=== PATIENT | male | born 1955 | race Caucasian/White ===

== ENCOUNTER 2020-12-28 16:05 | Emergency (ER) | payer MEDICARE, MEDICAID, SELFPAY ==
--- NOTE | ~2020-12-28 | CT_ITS ---
EXAMINATION: CT CHEST WITHOUT CONTRAST CLINICAL INFORMATION: Hypoxia. Question pneumonia. COMPARISON: None TECHNIQUE: Multidetector volumetric CT imaging of the chest was done. Axial MIP volume rendering provided. Sagittal and coronal reformatted images were obtained. This CT examination was performed using dose optimization techniques as appropriate, variously including the following: Automated exposure control. Adjustment of mA and/or kV according to patient size (this includes techniques or standardized protocols for targeted exams where dose is matched to indication/reason for exam; i.e. extremities or head). Use of iterative reconstruction technique. DLP: 1232 mGy-cm FINDINGS: [employer]: Unremarkable. LUNGS: Moderate emphysematous changes. Postsurgical change including linear scarring and sutures along the right major fissure extending into the right hilum. Subpleural calcified granuloma within the right lung apex. Mild dependent atelectasis, most prominent within the right lower lobe. No significant, confluent airspace opacity. No large pulmonary nodule or mass, however, evaluation is limited secondary to respiratory motion. The central airways are patent. MEDIASTINUM: No cardiomegaly. No pericardial effusion. No thoracic aortic dilatation. Scattered atherosclerotic calcifications. Mildly prominent precarinal lymph node measuring 1.2 x 1.5 cm. No additional mediastinal or hilar lymphadenopathy. Coronary artery atherosclerotic calcifications. Unremarkable thyroid. PLEURA: There is no pleural effusion. No pleural mass or thickening. AXILLA: No lymphadenopathy. UPPER ABDOMEN: Unremarkable. OSSEOUS STRUCTURES: Kyphoplasty at T12 and L1. No lytic or blastic osseous lesion. CT/CT chest wo con IMPRESSION: 1. Moderate emphysematous changes. Sutures and scarring consistent with postsurgical change along the right major fissure. 2. Mild dependent atelectasis without significant, confluent airspace opacity to suggest acute pneumonia. 3. Mildly prominent precarinal lymph node measuring 1.2 x 1.5 cm. No additional lymphadenopathy.
--- NOTE | ~2020-12-28 | CT_ITS ---
EXAMINATION: CT HEAD WITHOUT CONTRAST CT CERVICAL SPINE WITHOUT CONTRAST CLINICAL INFORMATION: Trauma COMPARISON: None. TECHNIQUE: Multidetector CT imaging of the head and cervical spine was performed without the use of intravenous contrast. Multiplanar reformats are reviewed. This CT examination was performed using dose optimization techniques as appropriate, variously including the following: *Automated exposure control *Adjustment of mA and/or kV according to patient size (this includes techniques or standardized protocols for targeted exams where dose is matched to indication/reason for exam; i.e. extremities or head) *Use of iterative reconstruction technique DLP: 123c2 mGy-cm. FINDINGS: There is no evidence of acute intracranial hemorrhage or territorial infarction. No abnormal mass effect or midline shift is seen. Andersen to white matter differentiation is well preserved. No extra-axial fluid collections are identified. The ventricles are normal in size. Mild patchy subcortical and periventricular white matter low-attenuation statistically related to cavernous carotid calcifications. Chronic small vessel ischemic disease. The osseous structures and soft tissues are normal. The mastoid air cells and visualized portions of the paranasal sinuses are well-aerated. Atlantooccipital alignment is maintained. The vertebral bodies and posterior elements align normally. No acute fracture or subluxation. Vertebral body heights are maintained.Small endplate osteophytes present throughout the cervical spine, with accompanying uncovertebral arthrosis, most pronounced at C4-C5 resulting in at least moderate bilateral foraminal narrowing, worse on the right. Paraspinal soft tissues unremarkable. Imaged lung apices demonstrate severe emphysema and right apical pleural-parenchymal scarring. CT/CT head/brain wo con IMPRESSION: No acute intracranial pathology. No cervical spine fracture or malalignment.
--- NOTE | ~2020-12-28 | CT_ITS ---
EXAMINATION: CT HEAD WITHOUT CONTRAST CT CERVICAL SPINE WITHOUT CONTRAST CLINICAL INFORMATION: Trauma COMPARISON: None. TECHNIQUE: Multidetector CT imaging of the head and cervical spine was performed without the use of intravenous contrast. Multiplanar reformats are reviewed. This CT examination was performed using dose optimization techniques as appropriate, variously including the following: *Automated exposure control *Adjustment of mA and/or kV according to patient size (this includes techniques or standardized protocols for targeted exams where dose is matched to indication/reason for exam; i.e. extremities or head) *Use of iterative reconstruction technique DLP: 123c2 mGy-cm. FINDINGS: There is no evidence of acute intracranial hemorrhage or territorial infarction. No abnormal mass effect or midline shift is seen. Andersen to white matter differentiation is well preserved. No extra-axial fluid collections are identified. The ventricles are normal in size. Mild patchy subcortical and periventricular white matter low-attenuation statistically related to cavernous carotid calcifications. Chronic small vessel ischemic disease. The osseous structures and soft tissues are normal. The mastoid air cells and visualized portions of the paranasal sinuses are well-aerated. Atlantooccipital alignment is maintained. The vertebral bodies and posterior elements align normally. No acute fracture or subluxation. Vertebral body heights are maintained.Small endplate osteophytes present throughout the cervical spine, with accompanying uncovertebral arthrosis, most pronounced at C4-C5 resulting in at least moderate bilateral foraminal narrowing, worse on the right. Paraspinal soft tissues unremarkable. Imaged lung apices demonstrate severe emphysema and right apical pleural-parenchymal scarring. CT/CT cervical spine wo con IMPRESSION: No acute intracranial pathology. No cervical spine fracture or malalignment.
[2020-12-28 16:17] VITALS: BP 129/79; BP 148/88; PULSE 100; PULSE 96; RESP 16; TEMP 36.7; O2SAT 96; BMI 25.0
--- NOTE | 2020-12-28 16:41 | ED_ITS ---
HPI - Alcohol General Chief Complaint: ETOH/Substance Use Stated Complaint: sitting on the sidewalk, etoh Time Seen by Provider: 12/28/20 16:40 Source: EMS Mode of arrival: EMS Limitations: altered mental status History of Present Illness HPI narrative: Patient brought by EMS intoxicated found on the side of the road. No known history of fall but patient has superficial abrasion on the left dorsum of the hand. Patient is very intoxicated and speaking in garbled speech also patient was recently diagnosed with pneumonia and taking antibiotics. Was saturating 90% on arrival at room air Related Data Allergies Allergy/AdvReac Type Severity Reaction Status Date / Time No Known Allergies Allergy Verified 12/28/20 16:22 Review of Systems Review of Systems: Yes Unobtainable due to mental status PMFSH Past Medical History Medical History ETOH abuse HTN (hypertension) Social History Social History Alcohol intake: current Smoking Status: Current every day smoker Use of substances other than those prescribed or required for medical reasons: No Advance Directives: No Advance Directives Information Provided: No Physical Exam Vital Signs: Vital Signs: Last Vital Signs Temp 98.0 F 12/28/20 16:17 Pulse 102 H 12/28/20 21:02 Resp 13 12/28/20 21:02 BP 115/75 12/28/20 21:02 Pulse Ox 92 12/28/20 21:02 Body Mass Index 25.0 Appearance: Lethargic but arousable to pain and verbal stimuli, No acute distress. ETOH++ Eyes: Pupils equal, round and reactive to light. Head :atraumatic normocephalic ENT: Pharynx normal. EAC normal both sides tympanic membrane intact Neck: Normal inspection. Neck supple. CVS: Normal heart rate and rhythm. Pulses normal. Respiratory: No respiratory distress. Breath sounds normal. Abdomen: Soft and nontender. Bowel sounds are present, no mass palpable, no CVA tenderness Skin: Skin warm and dry. Normal skin color. Normal skin turgor. Extremities: No lower extremity edema. Neuro: Oriented X 3. No motor deficit. No sensory deficit. MDM - Alcohol MDM Narrative Medical decision making narrative: Patient alert oriented x3 and communicating well eating and drinking in the ER CT scan negative labs stable will discharge him home advised to follow-up with detox as outpatient Differential Diagnosis Differential diagnosis: Likely alcohol intoxication Lab Data Attestation: I reviewed the patient's lab results. Result diagrams: 12/28/20 16:54 12/28/20 16:54 Labs: Lab Results 12/28/20 12/28/20 12/28/20 Range/Units 16:54 16:54 16:54 WBC 8.7 (4.8-10.8) X10*3/uL RBC 4.52 L (4.60-5.80) X10*6/uL Hgb 15.0 (14.0-18.0) g/dl Hct 44.2 (42-52) % MCV 97.8 (80-98) fL MCH 33.2 H (27.0-33.0) pg MCHC 33.9 (31.0-36.0) g/dl RDW 13.8 (11.0-16.0) % Plt Count 278 (160-400) X10*3/uL MPV 9.3 L (9.4-12.4) fL Immature Gran % (Auto) 0.3 (0.0-0.4) % Neut % (Auto) 89.1 H (45-73) % Lymph % (Auto) 8.9 L (20-40) % [place] % (Auto) 1.5 L (2-11) % Eos % (Auto) 0.0 (0-4) % Baso % (Auto) 0.2 (0-2) % Lymph # (Auto) 0.8 L (1.2-4.9) X10*3/uL [place] # (Auto) 0.1 (0.1-1.2) X10*3/uL Eos # (Auto) 0.0 (0.0-0.4) X10*3/uL Baso # (Auto) 0.0 (0.0-0.2) X10*3/uL Abs Immat Gran (auto) 0.03 (0.00-0.03) X10*3/uL Absolute Neuts (auto) 7.7 (2.0-8.3) X10*3/uL Absolute Nucleated RBC 0.000 (0.0-0.012) X10*3/uL Nucleated RBC % (auto) 0.0 (0.0-0.2) /100WBC PT 11.6 (10.8-13.0) SEC INR 1.0 (0.9-1.1) APTT 26.2 (24.1-38.0) SEC Sodium 144 (135-145) mmol/L Potassium 4.2 (3.3-5.1) mmol/L Chloride 108 (96-108) mmol/L Carbon Dioxide 21 L (22-29) mmol/L Anion Gap 19 (12-20) BUN 9 (9-16) mg/dL Creatinine 0.82 (0.5-1.4) mg/dL Estim Creat Clear Calc 85.0 Estimated GFR > 60 Random Glucose 127 H (60-115) mg/dL Calcium 8.6 (8.4-10.2) mg/dL Magnesium 2.3 (1.6-2.6) mg/dL Total Bilirubin 0.5 (0.0-1.0) mg/dL Direct Bilirubin 0.2 (0.0-0.5) mg/dL AST 28 (5-37) U/L ALT 19 (0-40) U/L Alkaline Phosphatase 56 (39-117) U/L Total Protein 7.1 (6.5-8.0) g/dL Albumin 4.2 (3.5-5.0) g/dL Ethyl Alcohol mg/dL COVID-19 ([facility]) (Negative) COVID-19 Clin Com 12/28/20 12/28/20 Range/Units 16:54 16:54 WBC (4.8-10.8) X10*3/uL RBC (4.60-5.80) X10*6/uL Hgb (14.0-18.0) g/dl Hct (42-52) % MCV (80-98) fL MCH (27.0-33.0) pg MCHC (31.0-36.0) g/dl RDW (11.0-16.0) % Plt Count (160-400) X10*3/uL MPV (9.4-12.4) fL Immature Gran % (Auto) (0.0-0.4) % Neut % (Auto) (45-73) % Lymph % (Auto) (20-40) % [place] % (Auto) (2-11) % Eos % (Auto) (0-4) % Baso % (Auto) (0-2) % Lymph # (Auto) (1.2-4.9) X10*3/uL [place] # (Auto) (0.1-1.2) X10*3/uL Eos # (Auto) (0.0-0.4) X10*3/uL Baso # (Auto) (0.0-0.2) X10*3/uL Abs Immat Gran (auto) (0.00-0.03) X10*3/uL Absolute Neuts (auto) (2.0-8.3) X10*3/uL Absolute Nucleated RBC (0.0-0.012) X10*3/uL Nucleated RBC % (auto) (0.0-0.2) /100WBC PT (10.8-13.0) SEC INR (0.9-1.1) APTT (24.1-38.0) SEC Sodium (135-145) mmol/L Potassium (3.3-5.1) mmol/L Chloride (96-108) mmol/L Carbon Dioxide (22-29) mmol/L Anion Gap (12-20) BUN (9-16) mg/dL Creatinine (0.5-1.4) mg/dL Estim Creat Clear Calc Estimated GFR Random Glucose (60-115) mg/dL Calcium (8.4-10.2) mg/dL Magnesium (1.6-2.6) mg/dL Total Bilirubin (0.0-1.0) mg/dL Direct Bilirubin (0.0-0.5) mg/dL AST (5-37) U/L ALT (0-40) U/L Alkaline Phosphatase (39-117) U/L Total Protein (6.5-8.0) g/dL Albumin (3.5-5.0) g/dL Ethyl Alcohol 349 H* mg/dL COVID-19 ([facility]) Negative (Negative) COVID-19 Clin Com See Note
--- NOTE | 2020-12-28 16:45 | ECG_ITS ---
Test Reason : ETOH/SUBSTANCE USE Blood Pressure : / mmHG Vent. Rate : 093 BPM Atrial Rate : 093 BPM P-R Int : 140 ms QRS Dur : 090 ms QT Int : 368 ms P-R-T Axes : 064 008 067 degrees QTc Int : 457 ms Normal sinus rhythm Normal ECG No previous ECGs available Referred By: Jose Taylor Electronically Signed By:Michi Aguila
[2020-12-28] MEDS: 0.9 % Sodium Chloride 1,000 ML 999 ML IVCONT ×2 (16:58→18:03)
[2020-12-28 16:59] LABS: MANUAL DIFF FLAG NO
[2020-12-28 17:00] LABS: Basophils Percent Auto 0.2 % (0-2); Hematocrit 44.2 % (42-52); Imm Gran Abs Auto 0.03 X10*3/uL (0.00-0.03); Imm Gran Pct Auto 0.3 % (0.0-0.4); Lymphocytes Absolute Auto 0.8 X10*3/uL (1.2-4.9); Lymphocytes Percent Auto 8.9 % (20-40); Mean Corpuscular HGB Conc 33.9 g/dl (31.0-36.0); Mean Corpuscular Hemoglobin 33.2 pg (27.0-33.0); Mean Corpuscular Volume 97.8 fL (80-98); Mean Platelet Volume 9.3 fL (9.4-12.4); Monocytes Absolute Auto 0.1 X10*3/uL (0.1-1.2); Monocytes Percent Auto 1.5 % (2-11); Neutrophils Absolute Auto 7.7 X10*3/uL (2.0-8.3); Neutrophils Percent Auto 89.1 % (45-73); Platelet Count 278 X10*3/uL (160-400); Red Blood Count 4.52 X10*6/uL (4.60-5.80); Red Cell Distribution Width 13.8 % (11.0-16.0); White Blood Count 8.7 X10*3/uL (4.8-10.8)
[2020-12-28 17:08] LABS: Prothrombin Time 11.6 SEC (10.8-13.0)
[2020-12-28 17:11] LABS: Partial Thromboplastin Time 26.2 SEC (24.1-38.0)
[2020-12-28 17:14] LABS: COVID-19 Test Negative (Negative); IDNOW Serial# 9DD0AD1C
[2020-12-28 17:26] LABS: Ethanol 349 mg/dL
[2020-12-28 17:30] LABS: Alanine Aminotransferase 19 U/L (0-40); Albumin Level 4.2 g/dL (3.5-5.0); Alkaline Phosphatase 56 U/L (39-117); Anion Gap 19 (12-20); Aspartate Amino Transferase 28 U/L (5-37); Bilirubin Direct 0.2 mg/dL (0.0-0.5); Bilirubin Total 0.5 mg/dL (0.0-1.0); Blood Urea Nitrogen 9 mg/dL (9-16); Calcium 8.6 mg/dL (8.4-10.2); Carbon Dioxide 21 mmol/L (22-29); Chloride 108 mmol/L (96-108); Estimated Glomerular Filt Rate > 60; Glucose Random 127 mg/dL (60-115); Potassium 4.2 mmol/L (3.3-5.1); Sodium 144 mmol/L (135-145); Total Protein 7.1 g/dL (6.5-8.0)
[2020-12-28 18:14] LABS: Magnesium 2.3 mg/dL (1.6-2.6)
[2020-12-28 21:02] VITALS: BP 115/75; PULSE 102; RESP 13; O2SAT 92
--- NOTE | 2020-12-28 21:21 | PC.NURSE ---
pt awake and alert, ambulatory with steady gait. pt trying to call for a cab to go home.
== END 2020-12-28 21:23 | disposition home or self-care (01) ==
PROVIDERS: Emergency Provider Internal Medicine
DX: F10.120 Alcohol abuse with intoxication, uncomplicated (principal); Y90.8 Blood alcohol level of 240 mg/100 ml or more; S60.512A Abrasion of left hand, initial encounter; X58.XXXA Exposure to other specified factors, initial encounter; I10 Essential (primary) hypertension; F17.200 Nicotine dependence, unspecified, uncomplicated; Y93.9 Activity, unspecified; Y92.480 Sidewalk as the place of occurrence of the external cause; Y99.9 Unspecified external cause status; Z20.822 Contact with and (suspected) exposure to COVID-19
CPT/HCPCS: 36415; 70450; 71250; 72125; 80048; 80076; 80320; 83735; 85025; 85610; 85730; 87635; 93005; 96360; 96361; 99284; 99285

== ENCOUNTER 2021-11-27 20:59 | Inpatient (IN) | payer MEDICARE, SELFPAY ==
[2021-11-27 21:23] VITALS: BMI 19.8
[2021-11-27 21:25] VITALS: BP 151/85; PULSE 57; RESP 18; TEMP 36.1; O2SAT 96
[2021-11-27] MEDS: hydrOXYzine HCL 25 MG TABLET PO (22:35)
--- NOTE | 2021-11-28 01:44 | PC.ADMIT ---
Pt. [place] [facility] [place]21 at 2113 with a diagnosis of MDD recurrent. Pt. was brought to the ED three days ago by ambulance after an attempted overdose on approximately 20-25 gabapentin and 2 pints of black velvet. According to ED documentation pt. reported SI during a call to a hotline, but pt. reported he may have called a friend. Someone contacted the police who came to pt's home. Pt. reports triggers as isolation and loneliness. Pt. reported one previous suicide attempt at age 27 when he walked in front of a moving vehicle and claims I was pronounced at the scene. Safety tool completed. Pt. denies SI currently. He contracts for safety on the unit. Pt. denies HI, AH and VH. Pt. receives psychiatric services through [facility]. Pt. reports history of ETOH abuse. He drinks two pints of whiskey daily. Pt. was recently discharged from [facility] in [place]. He scored zero on CIWA. Isatu Peacock NP was made aware and discontinued CIWA. Pt. is a PPD smoker x50 years. Nicotine patch ordered for AM. Pt. refused a flu vaccine reporting I never get one. Pt. has received COVID-19 vaccines and booster and is up to date with pneumonia vaccine. Pt. denies falls in the last six months. He ambulates independently. Pt. has upper and lower dentures in his mouth. Pt. reports eating and drinking adequately. Last BM was on 11/27/2021. Pt. wears bifocals. He reports chronic back and leg pain ranging from 3 to 8 out of 10. Surgical history includes kyphoplasty of lumbar spine fracture on 10/21/2017 and TURP 01/25/2012. Medical history includes COPD, osteoporosis and atherosclerosis of aorta. Pt. was alert and oriented x4. He was calm and cooperative. Admission assessments, safety tool and treatment plan completed. Pt. did not come with a list of medications and was unable to recall medications. He reports he is not always compliant with medications. Pt. uses [facility]. It was closed at time of admission. Med reconciliation to be completed during the day. Provider aware. Belongings checked in. Pt. was medicated with hydroxyzine 25mg at 2235. Pt. went to bed and appears to be resting quietly in bed.
[2021-11-28] MEDS: Acetaminophen 325 MG TABLET 650 MG PO ×2 (06:51→20:01)
[2021-11-28 08:27] LABS: Estimated Average Glucose 105 mg/dL; Hemoglobin A1c % 5.3 %
[2021-11-28 08:37] LABS: Cholesterol 192 mg/dL; HDL Cholesterol 52 mg/dL; LDL Cholesterol Calculated 112 mg/dl; Magnesium 2.3 mg/dL (1.6-2.6); Triglycerides 142 mg/dL
[2021-11-28] MEDS: Nicotine 21 MG PATCH.TD24 TRANSDERMA (08:43)
[2021-11-28 08:45] VITALS: BP 117/78; PULSE 65; RESP 18; TEMP 36.4; O2SAT 96
[2021-11-28 08:59] LABS: Free T4 (Free Thyroxine) 0.92 ng/dL (0.71-1.85); Thyroid Stimulating Hormone 3.54 uIU/mL (0.32-4.0)
[2021-11-28] MEDS: cloNIDine HCL 0.1 MG TABLET PO ×2 (12:43→20:01)
--- NOTE | 2021-11-28 15:19 | HO.PSYADMNOT ---
HPI Date of Service: 11/28/21 Chief Complaint: MDD recurrent episode Sources of Information: patient interviewed, chart reviewed and crisis/core team assessment reviewed HPI Subjective Notes: Gray Warning and Conditional Voluntary Narrative: The patient is a 66-year-old male, twice, father of adult children, currently on disability for the last 15 years, living alone referred from the emergency room of [facility] since the patient walking and he was complaining of suicidal ideation with a plan to overdose on alcohol and gabapentin. The patient was assessed by crisis and at that moment, he was unable to contract for safety so inpatient level of care was indicated. The patient carries a diagnosis of alcohol use disorder and major depressive disorder recurrent episode severe without psychosis. historically, the patient has several admissions for similar episodes that he got depressed with suicidal ideation in the context of substance abuse. On interview, the patient reported that he got into a binge of alcohol that worsen his depressive symptoms. He stated that he has been depressed fairly bad for the last 2 or 3 weeks elicited by depressed mood, and only a, lack of energy, feelings of hopelessness and worthlessness. He also start drinking more alcohol in a daily basis at a certain point he started feeling suicidal and he was unable to control himself so he asked for help. At the moment of the interview, the patient was able to contract for safety, he stated that he is not taking antipsychotics or antidepressants at this moment he was unable to provide for further details of treatment for depression or substance abuse but he stated that historically this imipramine worked very well for him for his depression. Nose psychotic symptoms at this moment. Regarding alcohol use disorder, he stated that he could keep himself sober when he is on naltrexone so he agreed to restart this medication 2. Past Psychiatric History: He has several encounters to crisis due to suicidal episodes in the context of substance abuse, he has several admissions into the hospital. The patient is a poor historian and able to provide when was the last admission but according to the chart he has several admissions for similar episodes Medical Evaluation Reviewed: Hospitalist [place] Pending [facility] Medical History Atherosclerosis of aorta Chronic obstructive pulmonary disease (COPD) Emphysema of lung ETOH abuse HTN (hypertension) Osteoporosis Tobacco dependence Surgical History History of basal cell carcinoma excision History of hydrocelectomy History of inguinal hernia repair History of kyphoplasty S/P TURP (status post transurethral resection of prostate) Family History: denies Social History: on disability for more than 15 years, he was twice and twice for similar reasons, his alcohol use disorder that interfered on his family life. At this moment he has very limited social support Substance History: history drinking alcohol at the age of 16 he has episodes of drinking a daily basis. He stated that when he was in his early 30s he had an episode of sobriety of 15 years. Historically, he was successful with naltrexone Trauma History: the night Diagnostics Vital Signs (24Hr): Vital Signs - 24 hr 11/27/21 21:25 11/28/21 08:45 Temperature 96.9 F 97.6 F Pulse Rate 57 65 Respiratory Rate 18 18 Blood Pressure 151/85 H 117/78 Pulse Oximetry 96 96 BMI result Body Mass Index 19.8 Labs Labs: Laboratory Results - last 48 hr 11/28/21 11/28/21 08:01 08:01 Estimat Average Glucose 105 Hemoglobin A1c % 5.3 Magnesium 2.3 Triglycerides 142 Cholesterol 192 LDL Cholesterol, Calc 112 HDL Cholesterol 52 TSH 3.54 Free T4 0.92 Meds/Allergies Meds Home Medications Acetaminophen (Acetaminophen 325 Mg Tablet) 650 mg PO Q6H PRN PRN Reason: Headache/Pain Mild Scale (1-3) Last Admin: 11/28/21 06:51 Dose: 650 mg Documented by: Al Hydroxide/Mg Hydroxide (Magnesium Hydrox/Alum Hydrox 30 Ml Oral.Susp) 30 ml PO Q6H PRN PRN Reason: Heartburn/Nausea Clonidine HCl (Clonidine Hcl 0.1 Mg Tablet) 0.1 mg PO TID PRN; Protocol PRN Reason: hyperarousal Last Admin: 11/28/21 12:43 Dose: 0.1 mg Documented by: Desipramine HCl (Desipramine Hcl 25 Mg Tablet) 12.5 mg PO BEDTIME SONY Hydroxyzine HCl (Hydroxyzine Hcl 25 Mg Tablet) 25 mg PO Q6H PRN PRN Reason: Anxiety Last Admin: 11/27/21 22:35 Dose: 25 mg Documented by: Magnesium Hydroxide (Milk Of Magnesia 30 Ml Oral.Susp) 30 ml PO DAILY PRN PRN Reason: Constipation Naltrexone HCl (Naltrexone Hcl 50 Mg Tablet) 50 mg PO DAILY SONY Nicotine (Nicotine 21 Mg Patch.Td24) 21 mg TRANSDERMA DAILY [facility] Last Admin: 11/28/21 08:43 Dose: 21 mg Documented by: Trazodone HCl (Trazodone Hcl 50 Mg Tablet) 50 mg PO BEDTIME PRN PRN Reason: Insomnia Allergies Allergies Allergy/AdvReac Type Severity Reaction Status Date / Time No Known Allergies Allergy Verified 11/27/21 21:30 Mental Status Exam Mental Status Exam Patient Appearance: Well Grooomed Patient Orientation: Person, Place, Time and Situation Level of Consciousness: Awake Patient Behavior: Cooperative Mood Description: Depressed Affect Description: Constricted Patient Cognition Impaired: No Ability to Follow Directions: Good Speech Pattern: Clear Hallucinations: None Delusions: Not Present Thought Process: Linear Thought Content: positive for [place] and positive for Perseveration Judgement: Fair Assessment & Plan Assessment & Plan (1) Alcohol use disorder, mild, abuse: Status: Acute Code(s): F10.10 - Alcohol abuse, uncomplicated (2) Major depressive disorder: Status: Acute Code(s): F32.9 - Major depressive disorder, single episode, unspecified Plan the patient is a middle-aged male, twice with a long history of alcohol use disorder that has impaired his life and he had even forensic involvement due to his alcohol use. He also has major depressive disorder, he had depressive episodes when he was clean and sober for 15 years in his 30s. The patient is admitted at this time due to suicidal ideation in the context of a survey jackman of depression with increased abuse of alcohol. Plan 1. Start this imipramine 12.5 mg p.o. to target depressive episodes. 2. Start naltrexone 50 mg p.o. q.h.s. to target alcohol cravings. 3. Continue other medications. 4. Gather collateral information. Patient educated on: diagnosis, substance abuse and therapeutic strategies Informed Consent: understands Reason for continued inpatient stay Substantial Risk for: harm to self, inability to function, rapid decompensation and med/psych decompensation
--- NOTE | 2021-11-28 16:25 | HO.HSGERICON ---
History of Present Illness Data of Consult Service Date: 11/28/21 Primary Care Provider: Pravin Gómez MD [facility] Reason for consult: htn, copd 66M admitted to inpatient psychiatry for depression. Patient has history of COPD this controlled on Spiriva and as needed albuterol. He is not actively having any shortness of breath. Patient also has history of hypertension but is not currently on medication. His blood pressure is 117/78. Review of Systems Review of Systems: Yes all other systems are reviewed and are negative [facility] Medical History Atherosclerosis of aorta Chronic obstructive pulmonary disease (COPD) Emphysema of lung ETOH abuse HTN (hypertension) Osteoporosis Tobacco dependence Family History Father No family history of coronary artery disease Surgical History History of basal cell carcinoma excision History of hydrocelectomy History of inguinal hernia repair History of kyphoplasty S/P TURP (status post transurethral resection of prostate) Social History Household Members: None Housing: House Housing Other:: Three family home, lives on third floor Do you presently have visiting nurse or other home services: No Alcohol intake: current Patient Tobacco Use Status: Current everyday Tobacco user Tobacco use type: Cigarette Cigarette Packs Per Day: 1 Cigarettes Per Day: 20.0 Years Smoked: 50 Smoked in Last 30 Days: Yes e-Cigarette/Vaping Use: Never Used Patient Interested in Nicotine Replacement: Yes Patient Given Instructions on How to Stop Smoking: Yes Date Education Initiated: 11/27/21 Second Hand Smoke Exposure: No Use of substances other than those prescribed or required for medical reasons: No Currently Displaying Signs/Symptoms of Drug Intoxication Withdrawal: No Any prior treatment program specific to substance use: Yes (Recent d/c from [facility] in [place] about a week ago.) Have you been hit, kicked, punched, or otherwise hurt by someone within the past year? If so, by whom?: No Do you feel safe in your current relationship?: No Is there a partner from a previous relationship who is making you feel unsafe now?: No Are you made to feel afraid or neglected: No Spiritual Healthcare Practices: n/a Congregation Healthcare Practices: Pt. is Confucianism. Cultural Healthcare Practices: n/a Advance Directives: No Advance Directives Information Provided: No Advance Directives on File: No Suicidal Behavior: History of suicide attemps and Self-injurious behavior Current/Past Psychiatric Disorders: Alcohol abuse Access to Firearms: No Do you have thoughts of harming others: None Do you have a plan to hurt others: No Plan Recently lost weight without trying: Yes How much weight loss: 2-13 pounds Eating poorly because of decreased appetite: Yes Nutrition screen score: 4 Nutrition Risks: No Nutritional Risk Poor oral hygiene: No (Upper and lower dentures in mouth.) Meds Allergies Allergy/AdvReac Type Severity Reaction Status Date / Time No Known Allergies Allergy Verified 11/27/21 21:30 Active Medications: Current Medications Acetaminophen (Acetaminophen 325 Mg Tablet) 650 mg PO Q6H PRN PRN Reason: Headache/Pain Mild Scale (1-3) Last Admin: 11/28/21 06:51 Dose: 650 mg Documented by: Al Hydroxide/Mg Hydroxide (Magnesium Hydrox/Alum Hydrox 30 Ml Oral.Susp) 30 ml PO Q6H PRN PRN Reason: Heartburn/Nausea Clonidine HCl (Clonidine Hcl 0.1 Mg Tablet) 0.1 mg PO TID PRN; Protocol PRN Reason: hyperarousal Last Admin: 11/28/21 12:43 Dose: 0.1 mg Documented by: Desipramine HCl (Desipramine Hcl 25 Mg Tablet) 12.5 mg PO BEDTIME [facility] Hydroxyzine HCl (Hydroxyzine Hcl 25 Mg Tablet) 25 mg PO Q6H PRN PRN Reason: Anxiety Last Admin: 11/27/21 22:35 Dose: 25 mg Documented by: Magnesium Hydroxide (Milk Of Magnesia 30 Ml Oral.Susp) 30 ml PO DAILY PRN PRN Reason: Constipation Naltrexone HCl (Naltrexone Hcl 50 Mg Tablet) 50 mg PO DAILY [facility] Nicotine (Nicotine 21 Mg Patch.Td24) 21 mg TRANSDERMA DAILY [facility] Last Admin: 11/28/21 08:43 Dose: 21 mg Documented by: Trazodone HCl (Trazodone Hcl 50 Mg Tablet) 50 mg PO BEDTIME PRN PRN Reason: Insomnia Results Labs Labs: Laboratory Results - last 24 hr 11/28/21 11/28/21 08:01 08:01 Estimat Average Glucose 105 Hemoglobin A1c % 5.3 Magnesium 2.3 Triglycerides 142 Cholesterol 192 LDL Cholesterol, Calc 112 HDL Cholesterol 52 TSH 3.54 Free T4 0.92 Assessment and Plan (1) HTN (hypertension): Status: Acute Plan 66M in inpatient psychiatry for depression copd stable continue spiriva albuterol as needed HTN not on meds, monitor Physical Exam Vital Signs: Last Vital Signs Temp 97.6 F 11/28/21 08:45 Pulse 65 11/28/21 08:45 Resp 18 11/28/21 08:45 BP 117/78 11/28/21 08:45 Pulse Ox 96 11/28/21 08:45 BMI result Body Mass Index 19.8 General: AO X 3, no acute distress Resp: CTA bilateral, no accessory muscles used CVS: S1,S2,RRR GI: soft, non tender, non distended Neuro: motor grossly intact, alert Neuro Cranial nerves: Yes CN's II-XII intact bilaterally
[2021-11-28 19:59] VITALS: BP 150/89; PULSE 62; RESP 18; TEMP 36.1; O2SAT 97
[2021-11-28] MEDS: Mirtazapine 15 MG TABLET PO (21:17)
[2021-11-29] MEDS: cloNIDine HCL 0.1 MG TABLET PO ×3 (06:24→21:24)
[2021-11-29] MEDS: Acetaminophen 325 MG TABLET 650 MG PO ×2 (06:24→16:14)
[2021-11-29 06:26] VITALS: BP 119/83; PULSE 82
[2021-11-29] MEDS: Nicotine 21 MG PATCH.TD24 TRANSDERMA (08:24)
[2021-11-29] MEDS: Naltrexone HCl 50 MG TABLET PO (08:24)
--- NOTE | 2021-11-29 12:22 | HO.PSYCHPN ---
Subjective Subjective Date of Service: 11/29/21 Reason For Visit: MDD recurrent episode Subjective Notes: Conditional Voluntary Interim History: The nursing staff reported the patient slept well last night, he has been pleasant and cooperative. On interview the patient reports that he is doing much better he slept fairly well last night. He is able to contract for safety in the unit Mental Status Exam Mental Status Exam Patient Appearance: Well Grooomed Patient Orientation: Person Level of Consciousness: Awake Patient Behavior: Cooperative Mood Description: Constricted Affect Description: Depressed Patient Cognition Impaired: No Speech Pattern: Clear Hallucinations: None Delusions: Not Present Thought Process: Linear Thought Content: positive for Circumstantial Judgement: Fair Diagnostics Vital Signs (24Hr): Vital Signs - 24 hr 11/28/21 19:59 11/29/21 06:26 Temperature 97.0 F Pulse Rate 62 82 Respiratory Rate 18 Blood Pressure 150/89 H 119/83 Pulse Oximetry 97 BMI result Body Mass Index 19.8 Labs Labs: Laboratory Results - last 48 hr 11/28/21 11/28/21 08:01 08:01 Estimat Average Glucose 105 Hemoglobin A1c % 5.3 Magnesium 2.3 Triglycerides 142 Cholesterol 192 LDL Cholesterol, Calc 112 HDL Cholesterol 52 TSH 3.54 Free T4 0.92 Medications Medications Current Medications Acetaminophen (Acetaminophen 325 Mg Tablet) 650 mg PO Q6H PRN PRN Reason: Headache/Pain Mild Scale (1-3) Last Admin: 11/29/21 06:24 Dose: 650 mg Documented by: Al Hydroxide/Mg Hydroxide (Magnesium Hydrox/Alum Hydrox 30 Ml Oral.Susp) 30 ml PO Q6H PRN PRN Reason: Heartburn/Nausea Albuterol Sulfate (Albuterol Sulfate 90 Mcg 8 Gm Inhaler) 1 puff INHALE Q6H PRN PRN Reason: sob Clonidine HCl (Clonidine Hcl 0.1 Mg Tablet) 0.1 mg PO TID PRN; Protocol PRN Reason: hyperarousal Last Admin: 11/29/21 06:24 Dose: 0.1 mg Documented by: Hydroxyzine HCl (Hydroxyzine Hcl 25 Mg Tablet) 25 mg PO Q6H PRN PRN Reason: Anxiety Last Admin: 11/27/21 22:35 Dose: 25 mg Documented by: Magnesium Hydroxide (Milk Of Magnesia 30 Ml Oral.Susp) 30 ml PO DAILY PRN PRN Reason: Constipation Mirtazapine (Mirtazapine 15 Mg Tablet) 15 mg PO BEDTIME [facility] Last Admin: 11/28/21 21:17 Dose: 15 mg Documented by: Naltrexone HCl (Naltrexone Hcl 50 Mg Tablet) 50 mg PO DAILY [facility] Last Admin: 11/29/21 08:24 Dose: 50 mg Documented by: Nicotine (Nicotine 21 Mg Patch.Td24) 21 mg TRANSDERMA DAILY [facility] Last Admin: 11/29/21 08:24 Dose: 21 mg Documented by: Tiotropium [place] (Tiotropium [place] 18 Mcg Cap.W.Dev) 1 puff INHALE RDAILY [facility] Last Admin: 11/29/21 08:25 Dose: 1 puff Documented by: Trazodone HCl (Trazodone Hcl 50 Mg Tablet) 50 mg PO BEDTIME PRN PRN Reason: Insomnia Allergies Allergies Allergy/AdvReac Type Severity Reaction Status Date / Time No Known Allergies Allergy Verified 11/27/21 21:30 Assessment & Plan Assessment & Plan (1) HTN (hypertension): Status: Acute Code(s): I10 - Essential (primary) hypertension Plan 66M in inpatient psychiatry for depression copd stable continue spiriva albuterol as needed HTN not on meds, monitor I spent ___20___ minutes with the patient and/or on the patient floor today, greater than?50% of which was spent counseling/coordinating care. Reason for contiued inpatient stay Substantial Risk for: inability to function, rapid decompensation and med/psych decompensation
[2021-11-29 20:30] VITALS: BP 102/60; PULSE 52; RESP 18; TEMP 36.2; O2SAT 96
[2021-11-29] MEDS: Mirtazapine 15 MG TABLET PO (21:24)
[2021-11-29] MEDS: Hydrocortisone 1 % Cream 28.35 GM TUBE 1 APPL TOPICAL (21:24)
[2021-11-30] MEDS: hydrOXYzine HCL 25 MG TABLET PO ×2 (01:56→20:16)
[2021-11-30] MEDS: cloNIDine HCL 0.1 MG TABLET PO (06:55)
[2021-11-30] MEDS: Acetaminophen 325 MG TABLET 650 MG PO ×2 (06:55→16:31)
[2021-11-30 06:57] VITALS: BP 119/59; PULSE 50; RESP 16; TEMP 36.4; O2SAT 95
[2021-11-30 08:36] LABS: Folate 6.6 ng/mL (> or = 4.0); Vitamin B12 225 pg/mL (200-900)
[2021-11-30 08:45] VITALS: BP 90/51; PULSE 40; RESP 16; TEMP 36.6; O2SAT 98
[2021-11-30] MEDS: Nicotine 21 MG PATCH.TD24 TRANSDERMA (09:02)
[2021-11-30] MEDS: Hydrocortisone 1 % Cream 28.35 GM TUBE 1 APPL TOPICAL (11:05)
[2021-11-30] MEDS: Naltrexone HCl 50 MG TABLET PO (11:06)
--- NOTE | 2021-11-30 11:48 | P.PNPSI_ITS ---
Subjective Subjective Date of Service: 11/30/21 Reason For Visit: MDD recurrent episode Subjective Notes: Conditional Voluntary Interim History: Pt reports he has been depressed for the past 2-3 months- or at least symptoms of depression increasing. He does report several events in his life that he regrets and have affected his mood and outlook on life throughout the years. He reports no contact with his adult children from 2 marriages. He reports that closest friend's told him recently to not call them again. He reports feeling lonely and guilt related to his ongoing alcohol use and how it has affected his ability to have a stable life and stable relationships with others. Despite this, he reports today that he is not suicidal, that he wants to get help/treatment for both substance use and psych. he does see psychiatrist and therapist but does not know what medication he is on. 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 we discussed either to continue it or switch to venlafaxine. he is also interested on vivitrol- reports he has been taking naltrexon for year but admits that when he knows he is going to drink he stops the medication. Review of Systems Review of Systems Yes all other systems are reviewed and are negative Diagnostics Vital Signs (24Hr): Vital Signs - 24 hr 11/29/21 20:30 11/30/21 06:57 11/30/21 08:45 Temperature 97.2 F 97.6 F 97.8 F Pulse Rate 52 50 40 L Respiratory Rate 18 16 16 Blood Pressure 102/60 119/59 L 90/51 L Pulse Oximetry 96 95 98 BMI result Body Mass Index 19.8 Labs Labs: Laboratory Results - last 48 hr 11/28/21 08:01 Vitamin B12 225 Folate 6.6 Medications Medications Current Medications Acetaminophen (Acetaminophen 325 Mg Tablet) 650 mg PO Q6H PRN PRN Reason: Headache/Pain Mild Scale (1-3) Last Admin: 11/30/21 06:55 Dose: 650 mg Documented by: Al Hydroxide/Mg Hydroxide (Magnesium Hydrox/Alum Hydrox 30 Ml Oral.Susp) 30 ml PO Q6H PRN PRN Reason: Heartburn/Nausea Albuterol Sulfate (Albuterol Sulfate 90 Mcg 8 Gm Inhaler) 1 puff INHALE Q6H PRN PRN Reason: sob Atorvastatin Calcium (Atorvastatin Calcium 10 Mg Tablet) 10 mg PO BEDTIME [facility] Finasteride (Finasteride 5 Mg Tablet) 5 mg PO DAILY [facility] Gabapentin (Gabapentin 100 Mg Capsule) 100 mg PO TID [facility] Hydrocortisone (Hydrocortisone 1 % Cream 28.35 Gm Tube) 1 appl TOPICAL BID [facility]; Protocol Last Admin: 11/30/21 11:05 Dose: 1 appl Documented by: Hydroxyzine HCl (Hydroxyzine Hcl 25 Mg Tablet) 25 mg PO Q6H PRN PRN Reason: Anxiety Last Admin: 11/30/21 01:56 Dose: 25 mg Documented by: Magnesium Hydroxide (Milk Of Magnesia 30 Ml Oral.Susp) 30 ml PO DAILY PRN PRN Reason: Constipation Mirtazapine (Mirtazapine 15 Mg Tablet) 15 mg PO BEDTIME [facility] Last Admin: 11/29/21 21:24 Dose: 15 mg Documented by: Naltrexone HCl (Naltrexone Hcl 50 Mg Tablet) 50 mg PO DAILY [facility] Last Admin: 11/30/21 11:06 Dose: 50 mg Documented by: Nicotine (Nicotine 21 Mg Patch.Td24) 21 mg TRANSDERMA DAILY [facility] Last Admin: 11/30/21 09:02 Dose: 21 mg Documented by: Tiotropium [place] (Tiotropium [place] 18 Mcg Cap.W.Dev) 1 puff INHALE RDAILY [facility] Last Admin: 11/30/21 09:02 Dose: 1 puff Documented by: Trazodone HCl (Trazodone Hcl 50 Mg Tablet) 50 mg PO BEDTIME PRN PRN Reason: Insomnia Allergies Allergies Allergy/AdvReac Type Severity Reaction Status Date / Time No Known Allergies Allergy Verified 11/27/21 21:30 Assessment & Plan Assessment & Plan (1) MDD (major depressive disorder), recurrent severe, without psychosis: Status: Acute Code(s): F33.2 - Major depressive disorder, recurrent severe without psychotic features (2) HTN (hypertension): Status: Acute Code(s): I10 - Essential (primary) hypertension (3) Alcohol use disorder, severe, dependence: Status: Acute Code(s): F10.20 - Alcohol dependence, uncomplicated Plan Mr. Cuevas is a 66 year-old male with hx of mdd, alcohol dependence who was admitted due to suicide attempt via OD on gabapentin. PLAN: 1. admit to M3, cv 15 minutes checks 2. continue gabapentin 100mg po TID 3. continue naltrexon- pt interested in getting vivitrol. he has been on it for year- although admits to not taking it consistently. no side effects. 4. either continue lexapro or switch to effexor. I spent minutes with the patient and/or on the patient floor today, greater than?50% of which was spent counseling/coordinating care. Reason for contiued inpatient stay Substantial Risk for: harm to self
[2021-11-30 16:18] VITALS: BMI 19.8
[2021-11-30] MEDS: Finasteride 5 MG TABLET PO (16:32)
[2021-11-30] MEDS: Gabapentin 100 MG CAPSULE PO ×2 (16:32→20:16)
[2021-11-30 18:00] VITALS: BP 116/60; PULSE 63; RESP 16; TEMP 36.2; O2SAT 98
[2021-11-30] MEDS: Atorvastatin Calcium 10 MG TABLET PO (20:16)
[2021-11-30] MEDS: Mirtazapine 15 MG TABLET PO (20:16)
[2021-12-01] MEDS: hydrOXYzine HCL 25 MG TABLET PO (01:46)
[2021-12-01] MEDS: Acetaminophen 325 MG TABLET 650 MG PO ×2 (01:46→12:45)
[2021-12-01 07:59] VITALS: BP 118/63; PULSE 58; RESP 16; TEMP 36.4; O2SAT 96
--- NOTE | 2021-12-01 08:06 | P.PNPSI_ITS ---
Subjective Subjective Date of Service: 12/01/21 Reason For Visit: MDD recurrent episode Subjective Notes: Conditional Voluntary Interim History: Pt reports feeling more optimistic about his future. He reports feeling less depressed, he is motivated to get vivitrol. He denies SI/HI. He reports he slept well last night. No behavioral concerns. Medication Compliance: Yes Side effects from medications: No Review of Systems Review of Systems Yes all other systems are reviewed and are negative Mental Status Exam Mental Status Exam Patient Appearance: Well Grooomed Patient Orientation: Person Level of Consciousness: Awake Patient Behavior: Cooperative Mood Description: Constricted Affect Description: Depressed Patient Cognition Impaired: No Ability to Follow Directions: Good Speech Pattern: Clear Diagnostics Vital Signs (24Hr): Vital Signs - 24 hr 12/01/21 20:18 Temperature 97.9 F Pulse Rate 59 Blood Pressure 148/70 H Pulse Oximetry 95 BMI result Body Mass Index 19.8 Labs Labs: Laboratory Results - last 48 hr 11/28/21 08:01 Vitamin B12 225 Folate 6.6 Medications Medications Current Medications Acetaminophen (Acetaminophen 325 Mg Tablet) 650 mg PO Q6H PRN PRN Reason: Headache/Pain Mild Scale (1-3) Last Admin: 12/02/21 05:27 Dose: 650 mg Documented by: Al Hydroxide/Mg Hydroxide (Magnesium Hydrox/Alum Hydrox 30 Ml Oral.Susp) 30 ml PO Q6H PRN PRN Reason: Heartburn/Nausea Albuterol Sulfate (Albuterol Sulfate 90 Mcg 8 Gm Inhaler) 1 puff INHALE Q6H PRN PRN Reason: sob Atorvastatin Calcium (Atorvastatin Calcium 10 Mg Tablet) 10 mg PO BEDTIME [facility] Last Admin: 12/01/21 20:26 Dose: 10 mg Documented by: Finasteride (Finasteride 5 Mg Tablet) 5 mg PO DAILY [facility] Last Admin: 12/01/21 08:14 Dose: 5 mg Documented by: Gabapentin (Gabapentin 100 Mg Capsule) 100 mg PO TID [facility] Last Admin: 12/01/21 20:25 Dose: 100 mg Documented by: Hydrocortisone (Hydrocortisone 1 % Cream 28.35 Gm Tube) 1 appl TOPICAL BID [facility]; Protocol Last Admin: 12/01/21 20:26 Dose: 1 appl Documented by: Hydroxyzine HCl (Hydroxyzine Hcl 25 Mg Tablet) 25 mg PO Q6H PRN PRN Reason: Anxiety Last Admin: 12/01/21 01:46 Dose: 25 mg Documented by: Magnesium Hydroxide (Milk Of Magnesia 30 Ml Oral.Susp) 30 ml PO DAILY PRN PRN Reason: Constipation Mirtazapine (Mirtazapine 15 Mg Tablet) 15 mg PO BEDTIME [facility] Last Admin: 12/01/21 20:26 Dose: 15 mg Documented by: Naltrexone HCl (Naltrexone Hcl 50 Mg Tablet) 50 mg PO DAILY [facility] Last Admin: 12/01/21 08:14 Dose: 50 mg Documented by: Nicotine (Nicotine 21 Mg Patch.Td24) 21 mg TRANSDERMA DAILY [facility] Last Admin: 12/01/21 08:12 Dose: 21 mg Documented by: Tiotropium [place] (Tiotropium [place] 18 Mcg Cap.W.Dev) 1 puff INHALE RDAILY [facility] Last Admin: 12/01/21 08:12 Dose: 1 puff Documented by: Trazodone HCl (Trazodone Hcl 50 Mg Tablet) 50 mg PO BEDTIME PRN PRN Reason: Insomnia Vitamin D (Cholecalciferol (Vitamin D3) 10 Mcg Tablet) 10 mcg PO DAILY [facility] Last Admin: 12/01/21 08:14 Dose: 10 mcg Documented by: Allergies Allergies Allergy/AdvReac Type Severity Reaction Status Date / Time No Known Allergies Allergy Verified 11/27/21 21:30 Assessment & Plan Assessment & Plan (1) MDD (major depressive disorder), recurrent severe, without psychosis: Status: Acute Code(s): F33.2 - Major depressive disorder, recurrent severe without psychotic features (2) HTN (hypertension): Status: Acute Code(s): I10 - Essential (primary) hypertension (3) Alcohol use disorder, severe, dependence: Status: Acute Code(s): F10.20 - Alcohol dependence, uncomplicated Plan Mr. Cuevas is a 66 year-old male with hx of mdd, alcohol dependence who was admitted due to suicide attempt via OD on gabapentin. PLAN: 1. admit to M3, cv 15 minutes checks 2. continue gabapentin 100mg po TID 3. continue naltrexon- pt interested in getting vivitrol. he has been on it for year- although admits to not taking it consistently. no side effects. 4. start effexor 37.5mg po daily. I spent minutes with the patient and/or on the patient floor today, greater than?50% of which was spent counseling/coordinating care. Reason for contiued inpatient stay Substantial Risk for: harm to self
[2021-12-01] MEDS: Hydrocortisone 1 % Cream 28.35 GM TUBE 1 APPL TOPICAL ×2 (08:11→20:26)
[2021-12-01] MEDS: Nicotine 21 MG PATCH.TD24 TRANSDERMA (08:12)
[2021-12-01] MEDS: Gabapentin 100 MG CAPSULE PO ×3 (08:14→20:25)
[2021-12-01] MEDS: Naltrexone HCl 50 MG TABLET PO (08:14)
[2021-12-01] MEDS: Finasteride 5 MG TABLET PO (08:14)
[2021-12-01] MEDS: Cholecalciferol (Vitamin D3) 10 MCG TABLET PO (08:14)
[2021-12-01 20:18] VITALS: BP 148/70; PULSE 59; TEMP 36.6; O2SAT 95
[2021-12-01] MEDS: Atorvastatin Calcium 10 MG TABLET PO (20:26)
[2021-12-01] MEDS: Mirtazapine 15 MG TABLET PO (20:26)
[2021-12-02] MEDS: Acetaminophen 325 MG TABLET 650 MG PO ×2 (05:27→15:29)
[2021-12-02 06:00] VITALS: BP 157/75; PULSE 64; RESP 16; TEMP 36.2; O2SAT 96
[2021-12-02] MEDS: Nicotine 21 MG PATCH.TD24 TRANSDERMA (08:58)
[2021-12-02] MEDS: Finasteride 5 MG TABLET PO (08:59)
[2021-12-02] MEDS: Hydrocortisone 1 % Cream 28.35 GM TUBE 1 APPL TOPICAL ×2 (08:59→21:09)
[2021-12-02] MEDS: Naltrexone HCl 50 MG TABLET PO (09:00)
[2021-12-02] MEDS: Cholecalciferol (Vitamin D3) 10 MCG TABLET PO (09:00)
[2021-12-02] MEDS: Venlafaxine HCl ER 37.5 MG CAP.ER.24H PO (09:00)
[2021-12-02] MEDS: Gabapentin 100 MG CAPSULE PO ×3 (09:00→21:08)
[2021-12-02] MEDS: Lidocaine 4 % Patch ADH..PATCH 1 PATCH TRANSDERMA ×2 (09:05→21:11)
--- NOTE | 2021-12-02 09:22 | HO.PSYCHPN ---
Subjective Subjective Date of Service: 12/02/21 Reason For Visit: MDD recurrent episode Subjective Notes: Conditional Voluntary Interim History: Pt reports sleeping and eating well. He reports feeling sleepy. He reports less depression, reports less symptoms of depression, optimistic about his future despite losses throughout the years due to alcohol use. He is motivated to get vivitrol- tolerating naltrexon for several months now. He denies SI/HI. Per nursing, pt visible in the unit, no behavioral concerns. Medication Compliance: Yes Side effects from medications: No Review of Systems Review of Systems Yes all other systems are reviewed and are negative Mental Status Exam Mental Status Exam Patient Appearance: Well Grooomed Patient Orientation: Person Level of Consciousness: Awake Patient Behavior: Cooperative Mood Description: Constricted Affect Description: Depressed Patient Cognition Impaired: No Ability to Follow Directions: Good Speech Pattern: Clear Diagnostics Vital Signs (24Hr): Vital Signs - 24 hr 12/03/21 18:00 12/04/21 08:36 Temperature 97.8 F 97.3 F Pulse Rate 75 88 Respiratory Rate 16 18 Blood Pressure 144/84 H 126/85 Pulse Oximetry 94 95 BMI result Body Mass Index 19.8 Medications Medications Current Medications Acetaminophen (Acetaminophen 325 Mg Tablet) 650 mg PO Q6H PRN PRN Reason: Headache/Pain Mild Scale (1-3) Last Admin: 12/04/21 08:38 Dose: 650 mg Documented by: Al Hydroxide/Mg Hydroxide (Magnesium Hydrox/Alum Hydrox 30 Ml Oral.Susp) 30 ml PO Q6H PRN PRN Reason: Heartburn/Nausea Albuterol Sulfate (Albuterol Sulfate 90 Mcg 8 Gm Inhaler) 1 puff INHALE Q6H PRN PRN Reason: sob Atorvastatin Calcium (Atorvastatin Calcium 10 Mg Tablet) 10 mg PO BEDTIME [facility] Last Admin: 12/03/21 20:38 Dose: 10 mg Documented by: Finasteride (Finasteride 5 Mg Tablet) 5 mg PO DAILY [facility] Last Admin: 12/04/21 08:38 Dose: 5 mg Documented by: Gabapentin (Gabapentin 100 Mg Capsule) 100 mg PO TID [facility] Last Admin: 12/04/21 08:39 Dose: 100 mg Documented by: Hydrocortisone (Hydrocortisone 1 % Cream 28.35 Gm Tube) 1 appl TOPICAL BID [facility]; Protocol Last Admin: 12/04/21 08:40 Dose: 1 appl Documented by: Hydroxyzine HCl (Hydroxyzine Hcl 25 Mg Tablet) 25 mg PO Q6H PRN PRN Reason: Anxiety Last Admin: 12/01/21 01:46 Dose: 25 mg Documented by: Lidocaine (Lidocaine 4 % Patch Adh..Patch) 1 patch TRANSDERMA BEDTIME [facility]; Protocol Last Admin: 12/03/21 20:38 Dose: 1 patch Documented by: Magnesium Hydroxide (Milk Of Magnesia 30 Ml Oral.Susp) 30 ml PO DAILY PRN PRN Reason: Constipation Mirtazapine (Mirtazapine 15 Mg Tablet) 15 mg PO BEDTIME [facility] Last Admin: 12/03/21 20:38 Dose: 15 mg Documented by: Naltrexone HCl (Naltrexone Hcl 50 Mg Tablet) 50 mg PO DAILY [facility] Last Admin: 12/04/21 08:39 Dose: 50 mg Documented by: Nicotine (Nicotine 21 Mg Patch.Td24) 21 mg TRANSDERMA DAILY [facility] Last Admin: 12/04/21 08:39 Dose: 21 mg Documented by: Tiotropium [place] (Tiotropium [place] 18 Mcg Cap.W.Dev) 1 puff INHALE RDAILY [facility] Last Admin: 12/04/21 08:39 Dose: 1 puff Documented by: Trazodone HCl (Trazodone Hcl 50 Mg Tablet) 50 mg PO BEDTIME PRN PRN Reason: Insomnia Last Admin: 12/03/21 20:41 Dose: 50 mg Documented by: Venlafaxine HCl (Venlafaxine Hcl Er 75 Mg Cap.Er.24h) 75 mg PO DAILY [facility] Last Admin: 12/04/21 08:39 Dose: 75 mg Documented by: Vitamin D (Cholecalciferol (Vitamin D3) 10 Mcg Tablet) 10 mcg PO DAILY [facility] Last Admin: 12/04/21 08:39 Dose: 10 mcg Documented by: Allergies Allergies Allergy/AdvReac Type Severity Reaction Status Date / Time No Known Allergies Allergy Verified 11/27/21 21:30 Assessment & Plan Assessment & Plan (1) MDD (major depressive disorder), recurrent severe, without psychosis: Status: Acute Code(s): F33.2 - Major depressive disorder, recurrent severe without psychotic features (2) HTN (hypertension): Status: Acute Code(s): I10 - Essential (primary) hypertension (3) Alcohol use disorder, severe, dependence: Status: Acute Code(s): F10.20 - Alcohol dependence, uncomplicated Plan Mr. Cuevas is a 66 year-old male with hx of mdd, alcohol dependence who was admitted due to suicide attempt via OD on gabapentin. PLAN: 1. admit to M3, cv 15 minutes checks 2. continue gabapentin 100mg po TID 3. continue naltrexon- pt interested in getting vivitrol. he has been on it for year- although admits to not taking it consistently. no side effects. 4. increase effexor 75mg po daily on 12/04. I spent minutes with the patient and/or on the patient floor today, greater than?50% of which was spent counseling/coordinating care. Reason for contiued inpatient stay Substantial Risk for: harm to self
--- NOTE | 2021-12-02 15:09 | MHC.CLN ---
F/U PATIENT REPORTS THAT HE IS EATING WELL. LIKES CHOCOLATE SUPPLEMENT. DIET=REGULAR WITH ENSURE BID. NO NEW NUTRITION INTERVENTIONS. RD TO FOLLOW WEEKLY.
[2021-12-02 20:46] VITALS: BP 160/77; PULSE 64; RESP 16; TEMP 36.6; O2SAT 94
[2021-12-02] MEDS: Mirtazapine 15 MG TABLET PO (21:08)
[2021-12-02] MEDS: Atorvastatin Calcium 10 MG TABLET PO (21:08)
[2021-12-03 08:00] VITALS: BP 131/87; PULSE 80; RESP 16; TEMP 36.8; O2SAT 95
[2021-12-03] MEDS: Nicotine 21 MG PATCH.TD24 TRANSDERMA (08:30)
[2021-12-03] MEDS: Finasteride 5 MG TABLET PO (08:31)
[2021-12-03] MEDS: Naltrexone HCl 50 MG TABLET PO (08:31)
[2021-12-03] MEDS: Cholecalciferol (Vitamin D3) 10 MCG TABLET PO (08:31)
[2021-12-03] MEDS: Gabapentin 100 MG CAPSULE PO ×3 (08:32→20:38)
[2021-12-03] MEDS: Venlafaxine HCl ER 37.5 MG CAP.ER.24H PO (08:32)
[2021-12-03] MEDS: Hydrocortisone 1 % Cream 28.35 GM TUBE 1 APPL TOPICAL (08:32)
[2021-12-03] MEDS: Acetaminophen 325 MG TABLET 650 MG PO (08:34)
--- NOTE | 2021-12-03 13:48 | HO.PSYCHPN ---
Subjective Subjective Date of Service: 12/03/21 Reason For Visit: MDD recurrent episode Interim History: Pt reports sleeping and eating well. He denies sedation during the day. He reports his mood is much improved in that he reports less symptoms of depression, optimistic about his future despite losses throughout the years due to alcohol use. He is motivated to get vivitrol- tolerating naltrexon for several months now. He denies SI/HI. Per nursing, pt visible in the unit, no behavioral concerns. Medication Compliance: Yes Review of Systems Review of Systems Yes all other systems are reviewed and are negative Mental Status Exam Mental Status Exam Patient Appearance: Well Grooomed Patient Orientation: Person Level of Consciousness: Awake Patient Behavior: Cooperative Mood Description: Constricted Affect Description: Depressed Patient Cognition Impaired: No Ability to Follow Directions: Good Speech Pattern: Clear Diagnostics Vital Signs (24Hr): Vital Signs - 24 hr 12/02/21 20:46 12/03/21 08:00 Temperature 97.8 F 98.3 F Pulse Rate 64 80 Respiratory Rate 16 16 Blood Pressure 160/77 H 131/87 Pulse Oximetry 94 95 BMI result Body Mass Index 19.8 Medications Medications Current Medications Acetaminophen (Acetaminophen 325 Mg Tablet) 650 mg PO Q6H PRN PRN Reason: Headache/Pain Mild Scale (1-3) Last Admin: 12/03/21 08:34 Dose: 650 mg Documented by: Al Hydroxide/Mg Hydroxide (Magnesium Hydrox/Alum Hydrox 30 Ml Oral.Susp) 30 ml PO Q6H PRN PRN Reason: Heartburn/Nausea Albuterol Sulfate (Albuterol Sulfate 90 Mcg 8 Gm Inhaler) 1 puff INHALE Q6H PRN PRN Reason: sob Atorvastatin Calcium (Atorvastatin Calcium 10 Mg Tablet) 10 mg PO BEDTIME [facility] Last Admin: 12/02/21 21:08 Dose: 10 mg Documented by: Finasteride (Finasteride 5 Mg Tablet) 5 mg PO DAILY SONY Last Admin: 12/03/21 08:31 Dose: 5 mg Documented by: Gabapentin (Gabapentin 100 Mg Capsule) 100 mg PO TID [facility] Last Admin: 12/03/21 08:32 Dose: 100 mg Documented by: Hydrocortisone (Hydrocortisone 1 % Cream 28.35 Gm Tube) 1 appl TOPICAL BID SONY; Protocol Last Admin: 12/03/21 08:32 Dose: 1 appl Documented by: Hydroxyzine HCl (Hydroxyzine Hcl 25 Mg Tablet) 25 mg PO Q6H PRN PRN Reason: Anxiety Last Admin: 12/01/21 01:46 Dose: 25 mg Documented by: Lidocaine (Lidocaine 4 % Patch Adh..Patch) 1 patch TRANSDERMA BEDTIME [facility]; Protocol Last Admin: 12/02/21 21:11 Dose: 1 patch Documented by: Magnesium Hydroxide (Milk Of Magnesia 30 Ml Oral.Susp) 30 ml PO DAILY PRN PRN Reason: Constipation Mirtazapine (Mirtazapine 15 Mg Tablet) 15 mg PO BEDTIME [facility] Last Admin: 12/02/21 21:08 Dose: 15 mg Documented by: Naltrexone HCl (Naltrexone Hcl 50 Mg Tablet) 50 mg PO DAILY [facility] Last Admin: 12/03/21 08:31 Dose: 50 mg Documented by: Nicotine (Nicotine 21 Mg Patch.Td24) 21 mg TRANSDERMA DAILY [facility] Last Admin: 12/03/21 08:30 Dose: 21 mg Documented by: Tiotropium Hale (Tiotropium Hale 18 Mcg Cap.W.Dev) 1 puff INHALE RDAILY [facility] Last Admin: 12/03/21 08:30 Dose: 1 puff Documented by: Trazodone HCl (Trazodone Hcl 50 Mg Tablet) 50 mg PO BEDTIME PRN PRN Reason: Insomnia Venlafaxine HCl (Venlafaxine Hcl Er 37.5 Mg Cap.Er.24h) 37.5 mg PO DAILY [facility] Last Admin: 12/03/21 08:32 Dose: 37.5 mg Documented by: Vitamin D (Cholecalciferol (Vitamin D3) 10 Mcg Tablet) 10 mcg PO DAILY [facility] Last Admin: 12/03/21 08:31 Dose: 10 mcg Documented by: Allergies Allergies Allergy/AdvReac Type Severity Reaction Status Date / Time No Known Allergies Allergy Verified 11/27/21 21:30 Assessment & Plan Assessment & Plan (1) MDD (major depressive disorder), recurrent severe, without psychosis: Status: Acute Code(s): F33.2 - Major depressive disorder, recurrent severe without psychotic features (2) HTN (hypertension): Status: Acute Code(s): I10 - Essential (primary) hypertension (3) Alcohol use disorder, severe, dependence: Status: Acute Code(s): F10.20 - Alcohol dependence, uncomplicated Plan Mr. Cuevas is a 66 year-old male with hx of mdd, alcohol dependence who was admitted due to suicide attempt via OD on gabapentin. PLAN: 1. admit to M3, cv 15 minutes checks 2. continue gabapentin 100mg po TID 3. continue naltrexon- pt interested in getting vivitrol. he has been on it for year- although admits to not taking it consistently. no side effects. 4. increase effexor 75mg po daily on 12/04. I spent minutes with the patient and/or on the patient floor today, greater than?50% of which was spent counseling/coordinating care. Reason for contiued inpatient stay Substantial Risk for: stable for discharge
[2021-12-03 18:00] VITALS: BP 144/84; PULSE 75; RESP 16; TEMP 36.6; O2SAT 94
[2021-12-03] MEDS: Lidocaine 4 % Patch ADH..PATCH 1 PATCH TRANSDERMA (20:38)
[2021-12-03] MEDS: Mirtazapine 15 MG TABLET PO (20:38)
[2021-12-03] MEDS: Atorvastatin Calcium 10 MG TABLET PO (20:38)
[2021-12-03] MEDS: traZODone HCL 50 MG TABLET PO (20:41)
[2021-12-04 08:36] VITALS: BP 126/85; PULSE 88; RESP 18; TEMP 36.3; O2SAT 95
[2021-12-04] MEDS: Finasteride 5 MG TABLET PO (08:38)
[2021-12-04] MEDS: Acetaminophen 325 MG TABLET 650 MG PO (08:38)
[2021-12-04] MEDS: Nicotine 21 MG PATCH.TD24 TRANSDERMA (08:39)
[2021-12-04] MEDS: Naltrexone HCl 50 MG TABLET PO (08:39)
[2021-12-04] MEDS: Gabapentin 100 MG CAPSULE PO (08:39)
[2021-12-04] MEDS: Venlafaxine HCl ER 75 MG CAP.ER.24H PO (08:39)
[2021-12-04] MEDS: Cholecalciferol (Vitamin D3) 10 MCG TABLET PO (08:39)
[2021-12-04] MEDS: Hydrocortisone 1 % Cream 28.35 GM TUBE 1 APPL TOPICAL (08:40)
--- NOTE | 2021-12-04 09:36 | PM.PSYDC ---
DS: Providers Provider Date of Service: 12/04/21 Date of admission: 11/27/21 20:59 Primary care physician: Pravin Gómez MD Consults: 11/27/21 21:32 Consult to Hospitalist Routine Consulting Provider: Hospitalist Reason For Exam: New admit from [facility] DS: Diagnosis Discharge Diagnosis (1) MDD (major depressive disorder), recurrent severe, without psychosis: Status: Acute (2) HTN (hypertension): Status: Acute (3) Alcohol use disorder, severe, dependence: Status: Acute DS: Medications Discharge Medications Home Medications: Previous Rx's Medication Instructions Recorded naltrexone microspheres 380 mg 380 mg IM Q4W #1 ea 12/02/21 intramuscular suspension,extended release (Vivitrol) albuterol sulfate 90 mcg/actuation 1 puff INHALATION Q6H PRN #0 g 12/04/21 aerosol inhaler (Ventolin HFA) atorvastatin 10 mg tablet 10 mg PO BEDTIME #0 tab 12/04/21 cholecalciferol (vitamin D3) 10 10 mcg PO DAILY #0 tab 12/04/21 mcg (400 unit) tablet (Vitamin D3) finasteride 5 mg tablet (Proscar) 5 mg PO DAILY #0 tab 12/04/21 gabapentin 100 mg capsule 100 mg PO TID #0 cap 12/04/21 hydrocortisone 1 % topical cream 1 appl TOPICAL BID #0 g 12/04/21 lidocaine 4 % topical patch 1 patch TRANSDERMAL BEDTIME #0 ea 12/04/21 (Lidocaine Pain Relief) mirtazapine 15 mg tablet 15 mg PO BEDTIME #30 tab 12/04/21 naltrexone 50 mg tablet 50 mg PO DAILY #30 tab 12/04/21 nicotine 21 mg/24 hr daily 21 mg TRANSDERMAL DAILY #0 ea 12/04/21 transdermal patch tiotropium bromide 18 mcg capsule 18 mcg INHALATION RDAILY #0 12/04/21 with inhalation device (Spiriva with HandiHaler) trazodone 50 mg tablet 50 mg PO BEDTIME PRN #30 tab 12/04/21 venlafaxine 75 mg capsule,extended 75 mg PO DAILY #30 cap 12/04/21 release 24 hr Mental Status Exam Mental Status Exam Narrative: Appearance: casually groomed, good hygiene, in NAD Behavior: cooperative, calm Speech: clear, normal rate/rhythm/volume, spontaneous Psychomotor: no agitation or retardation noted Mood: good Affect: bright, non labile, congruent TP: linear TC: no signs of psychosis, future oriented. VH/AH: none Delusions: none Insight/judgment: fair x 2. Memory/Cognition: alert, oriented x 3. Data Data Completed and Pending Completed studies during hospitalization [Text1]: 11/28/21 11/28/21 11/28/21 08:01 08:01 08:01 Estimat Average Glucose 105 Hemoglobin A1c % 5.3 Magnesium 2.3 Triglycerides 142 Cholesterol 192 LDL Cholesterol, Calc 112 HDL Cholesterol 52 Vitamin B12 225 Folate 6.6 TSH 3.54 Free T4 0.92 DS: Summary Hospital Course Hospital Course: Gray Warning and Conditional Voluntary Narrative: ? The patient is a 66-year-old male, twice, father of adult children, currently on disability for the last 15 years, living alone referred from the emergency room of [facility] since the patient walking and he was complaining of suicidal ideation with a plan to overdose on alcohol and gabapentin.? The patient was assessed by crisis and at that moment, he was unable to contract for safety so inpatient level of care was indicated.? The patient carries a diagnosis of alcohol use disorder and major depressive disorder recurrent episode severe without psychosis.? historically, the patient has several admissions for similar episodes that he got depressed with suicidal ideation in the context of substance abuse.? On interview, the patient reported that he got into a binge of alcohol that worsen his depressive symptoms.? He stated that he has been depressed fairly bad for the last 2 or 3 weeks elicited by depressed mood, and only a, lack of energy, feelings of hopelessness and worthlessness.? He also start drinking more alcohol in a daily basis at a certain point he started feeling suicidal and he was unable to control himself so he asked for help. At the moment of the interview, the patient was able to contract for safety, he stated that he is not taking antipsychotics or antidepressants at this moment he was unable to provide for further details of treatment for depression or substance abuse but he stated that historically this imipramine worked very well for him for his depression.? Nose psychotic symptoms at this moment.? Regarding alcohol use disorder, he stated that he could keep himself sober when he is on naltrexone so he agreed to restart this medication 2. Past Psychiatric History: ? He has several encounters to crisis due to suicidal episodes in the context of substance abuse, he has several admissions into the hospital.? The patient is a poor historian and able to provide when was the last admission but according to the chart he has several admissions for similar episodes Medical Evaluation Reviewed: Hospitalist [place] Pending HOSPITAL COURSE On the unit, Mr. Cuevas was admitted on a CV and placed on 15 minutes checks for safety. He was monitored for alcohol withdrawal, but he did not have significant symptoms. After discussing risks, benefits and alternative treatment options, pt reports partial or minimal effect on lexapro for depression and agreed to change to effexor. He was continued on Gabapentin 100mg po TID. He was started on remeron for sleep and mood. His affect gradually brighten. He presented future oriented and optimist about his future. He reported that despite all relationships lost due to his alcohol use, he was focused on rebuilding his life and continuing dual dx treatment. His sleep was good. His appetite increased. He did not appear with VH/AH. He was visible in the unit, social with peers. There were no incidences of disruptive behaviors nor use of restraints. He agreed to get vivitrol injection- reports being on naltrexon for a year without side effects, but admits to not taking it when he knows he will be using alcohol. Pt also educated on fact that even if he suspects he will drink, naltrexon will decrease amount. Status at Discharge Cognitive/behavioral status at discharge: Pt with bright affect. No labile, future oriented. No SI/HI. No signs of aggression towards self or others. Functional status at discharge: independent ambulation Overall status at discharge: patient is progressing back to baseline Time Spent with Patient Time attestation: Total time spent providing and/or coordinating discharge services: Time spent: Greater than 30 minutes Discharge Plan Discharge Patient Disposition: Home, Self-Care Discharge Diagnosis: MDD, recurrent, moderate Alcohol dependence Referrals: Norma Daigle [Other] - 12/10/21 8:30 am [facility] [Other] - 12/04/21 1:30 pm (IN OFFICE APPOINTMENT - intake for Vivitrol shot) Dr. 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 ) Alvaro Patel (Therapy) [Other] - 1 Week Discharge Medications: New Vivitrol 380 mg suspension,extended rel recon 380 mg IM Q4W Qty: 1 0RF albuterol sulfate [Ventolin HFA] 90 mcg/actuation Hfa Aerosol Inhaler 1 puff inhalation Q6H PRN (Reason: sob) Qty: 0 0RF Spiriva with HandiHaler 18 mcg Capsule, W/Inhalation Device 18 mcg inhalation RDAILY Qty: 0 0RF atorvastatin 10 mg Tablet 10 mg PO BEDTIME Qty: 0 0RF nicotine 21 mg/24 hr Patch 24 Hour 21 mg transdermal DAILY Qty: 0 0RF gabapentin 100 mg Capsule 100 mg PO TID Qty: 0 0RF venlafaxine 75 mg Capsule,Extended Release 24hr 75 mg PO DAILY Qty: 30 0RF lidocaine [Lidocaine Pain Relief] 4 % Adhesive Patch,Medicated 1 patch transdermal BEDTIME Qty: 0 0RF Protocol: Apply to: Apply to: back trazodone 50 mg Tablet 50 mg PO BEDTIME PRN (Reason: Insomnia) Qty: 30 0RF naltrexone 50 mg Tablet 50 mg PO DAILY Qty: 30 0RF hydrocortisone 1 % Cream 1 appl topical BID Qty: 0 0RF Protocol: Apply to: Apply to: affected areas on face and neck mirtazapine 15 mg Tablet 15 mg PO BEDTIME Qty: 30 0RF cholecalciferol (vitamin D3) [Vitamin D3] 10 mcg (400 unit) Tablet 10 mcg PO DAILY Qty: 0 0RF finasteride [Proscar] 5 mg Tablet 5 mg PO DAILY Qty: 0 0RF No Action naltrexone 50 mg tablet 50 mg PO DAILY 30 Days Qty: 30 5RF acamprosate 333 mg tablet,delayed release (DR/EC) 666 mg PO TID 30 Days Qty: 180 5RF Discharge Orders: Discharge Order (Routine); Ordered 12/04/21 Ordered By: Constance Brewster Diet: regular diet Activity on Discharge: As tolerated Stand Alone Forms: Patient Portal Discharge page Care Plan Goals: 1. Maintain mood 2. No SI/HI. Health Concerns: Follow up with PCP Plan of Treatment: 1. Take medications as prescribed. 2. Go to nearest ED or call 911 in event of emergency Assessment: Pt is brighter, non labile. No SI/HI. Pt sleeping and eating well. No signs of aggression towards self or others. Continue working on alcohol use treatment. Discharge Date/Time: 12/04/21 13:30
--- NOTE | 2021-12-04 13:30 | PC.NURSE ---
Patient is alert and orineted x 4. Patient is pleasant and cooperative with discharge. Patient was in agreement with discharge and discharge instructions. Patient denied SI/HI/AH/VH. Patient denied anxiety and/or depression. Patient reported feeling safe to go home. Patient denies physical complaints at this time.
== END 2021-12-04 13:30 | disposition home or self-care (01) | DRG 885 ==
PROVIDERS: Registered Nurse; Admitting Provider Psychiatry & Neurology Psychiatry; PCP Family Medicine; Visit Provider Social Worker
DX: F33.2 Major depressive disorder, recurrent severe without psychotic features (principal); R45.851 Suicidal ideations; J44.9 Chronic obstructive pulmonary disease, unspecified; F10.20 Alcohol dependence, uncomplicated; I10 Essential (primary) hypertension; F17.210 Nicotine dependence, cigarettes, uncomplicated; Z71.6 Tobacco abuse counseling; Z79.899 Other long term (current) drug therapy
CPT/HCPCS: 36415; 80061; 82607; 82746; 83036; 83735; 84439; 84443

== ENCOUNTER → 2021-12-04 13:36 | Outpatient (BNVA) | payer MEDICARE, SELFPAY | PROVIDERS: Visit Provider Internal Medicine | DX: F10.20 Alcohol dependence, uncomplicated (principal); F33.2 Major depressive disorder, recurrent severe without psychotic features; Z79.899 Other long term (current) drug therapy | CPT/HCPCS: 80305; 99202 ==

== ENCOUNTER 2022-05-25 01:55 | Inpatient (IN) | payer OTHER, SELFPAY ==
--- NOTE | 2022-05-25 05:18 | PC.ADMIT ---
Patient is a 40-year-old, , Slovenian speaking male who presented to at approximately 0215 05/25/22 via ambulance from [facility] emergency department. Patient signed a Conditional Voluntary status form; he is covid negative.? Patient has a history of emphysema, approximately 1/4 of his lung removed, history of prostate surgery, degenerative back disease, several removals of basal cell carcinoma, including right forearm and left eyelid. He has a history of chronic UTIs, osteoporosis, and COPD. He is a heavy smoker, states he smokes a pack and a half a day, which contributes to his respiratory issues. Patient fractured his back in November of 2017 while coughing and had it surgically repaired. He has had bouts of paralysis in his legs from a lack of blood flow. Per [facility] ED, patient presented with alcohol intoxication and making suicidal statements. He reported that he woke up and for the first time had an overwhelming feeling of wanting to kill himself. He shared with friends that he had a plan to take 20 pills. Friends became concerned and reported it. An ambulance was called and he was transported to [facility] ED.?Patient reports living alone in his own apartment. He states that it is a place for the elderly and he is always alone and never gets to see anyone. He reports that current insurance does not cover PCP or detox. So he is in the process of obtaining insurance that would cover these services. Patient was cooperative and pleasant during the admission process. A&O X4.
[2022-05-25] MEDS: Escitalopram Oxalate 10 MG TABLET PO (09:02)
[2022-05-25] MEDS: Thiamine HCL 100 MG TABLET PO (09:02)
[2022-05-25] MEDS: Folic Acid 1 MG TABLET PO (09:02)
[2022-05-25] MEDS: Atorvastatin Calcium 10 MG TABLET PO (09:02)
[2022-05-25] MEDS: risperiDONE 1 MG TABLET PO (09:02)
[2022-05-25] MEDS: Finasteride 5 MG TABLET PO (09:02)
[2022-05-25] MEDS: Gabapentin 100 MG CAPSULE 200 MG PO ×3 (09:02→21:12)
[2022-05-25] MEDS: Albuterol Sulfate 90 MCG 8 GM INHALER 2 PUFF INHALE (09:29)
[2022-05-25] MEDS: Nicotine 21 MG PATCH.TD24 TRANSDERMA (12:29)
[2022-05-25] MEDS: Acetaminophen 325 MG TABLET 650 MG PO (18:48)
[2022-05-25 18:49] VITALS: BMI 18.1
[2022-05-25 21:10] VITALS: BP 159/82; PULSE 68; TEMP 36.8; O2SAT 98
[2022-05-25] MEDS: Tamsulosin HCL 0.4 MG CAPSULE PO (21:12)
[2022-05-25] MEDS: diphenhydrAMINE HCL 25 MG TABLET PO (21:12)
--- NOTE | 2022-05-25 23:23 | HO.PSYADMNOT ---
HPI Date of Service: 05/25/22 Chief Complaint: Bipolar I d/O Current or Most Recent Episode Dep Sources of Information: patient interviewed, chart reviewed and crisis/core team assessment reviewed HPI Subjective Notes: Gray Warning and Conditional Voluntary Healthcare Proxy: No Guardianship: No Medical Problems Affecting Mental Status: No Narrative: Aris is a 67 y.o. male who carries a dx of MDD with psychotic features. He presented to [facility] crisis on 05/25/22 due to SI with plan to OD on his medication. Precipitating factors include that pt has been non-adherent with meds, chronic alcoholic, feels lonely. He consumes 6-10 shots alcohol daily and has not had alcohol in 6 days, presumably has already gone through withdrawal. I attempted to evaluate pt this evening, however he is already asleep for the night. Past Psychiatric History: -He has several encounters with crisis due to suicidal episodes in the context of substance abuse, he has several admissions into the hospital. -hx of 3 prior suicide attempts, last 2017 via overdose with lexapro and alcohol Medical Evaluation Reviewed: Yes [facility] Medical History (Updated 05/27/22 @ 06:07 by Isatu Peacock NP) Atherosclerosis of aorta Chronic obstructive pulmonary disease (COPD) Emphysema of lung ETOH abuse HTN (hypertension) Lumbar degenerative disc disease Osteoporosis Tobacco dependence Surgical History History of basal cell carcinoma excision History of hydrocelectomy History of inguinal hernia repair History of kyphoplasty S/P TURP (status post transurethral resection of prostate) Family History: -Daughter: has heroin abuse issues. Bio mom: alcoholic Social History: -on disability for more than 15 years -he was twice and twice for similar reasons, his alcohol use disorder that interfered on his family life. -very limited social support. Lives alone in an apartment -Per chart, pt was adopted. -Has 2 adult children. -[facility] -Hx of incarceration x 3 mo for alcohol related offenses and gun charge, has been assaultive towards his ex. Substance History: -ETOH: onset age 17. Consumes 6-10 shots alcohol daily and has not had alcohol in 6 days. Denies having gone through withdrawal and no hx withdrawal seizures. 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 His first child with his first at age 3 months. His children were removed and adopted due to his alcoholism (they are now adults). Diagnostics Vital Signs (24Hr): Vital Signs - 24 hr 05/25/22 21:10 05/26/22 06:00 Temperature 98.2 F 97.2 F Pulse Rate 68 88 Respiratory Rate 18 Blood Pressure 159/82 H 132/69 Pulse Oximetry 98 97 Oxygen Delivery Method Room Air Room Air BMI result Body Mass Index 18.1 Labs Labs: Laboratory Results - last 48 hr 05/26/22 05/26/22 05/26/22 08:00 08:00 08:00 Estimat Average Glucose 100 Hemoglobin A1c % 5.1 Magnesium 2.0 Triglycerides 109 Cholesterol 170 LDL Cholesterol, Calc 85 HDL Cholesterol 64 D Vitamin B12 246 Folate 13.1 TSH 2.10 Free T4 0.82 Meds/Allergies Allergies Allergies Allergy/AdvReac Type Severity Reaction Status Date / Time No Known Allergies Allergy Verified 12/04/21 13:48 Mental Status Exam Mental Status Exam Narrative: A&O. Unkempt appearance, normal body habitus, appears older than stated age. Good eye contact, attentive. No Tics or Tremors. No abnormal involuntary movements. Calm, cooperative, engaged. Non-pressured speech, spontaneous with regular rate and rhythm, normal volume and prosody. No prolonged speech latency or dysarthria. Mood is ?depressed,? affect is appropriate. Endorses passive SI. Denies SIB/HI upon inquiry. Endorses AH. Denies VH or delusional thought content. Thoughts are coherent, organized. No known cognitive or memory impairment. Insight/ Judgment fair and adequate. Assessment & Plan Assessment & Plan (1) MDD (major depressive disorder), recurrent severe, without psychosis: Status: Acute Code(s): F33.2 - Major depressive disorder, recurrent severe without psychotic features (2) Alcohol use disorder, severe, dependence: Status: Acute Code(s): F10.20 - Alcohol dependence, uncomplicated Plan Aris is a 67 y.o. male who carries a dx of MDD with psychotic features. He presented to [facility] crisis on 05/25/22 due to SI with plan to OD on his medication. Precipitating factors include that pt has been non-adherent with meds, chronic alcoholic, feels lonely. He consumes 6-10 shots alcohol daily and has not had alcohol in 6 days, presumably has already gone through withdrawal. Hx of multiple psych admissions for SI and hx of SA by overdose, jumping out of window. Plan: Re-start home medications, lexapro 10 mg daily, risperdal 1 mg for psychotic depression Q15 min safety checks, CV Monitor response to medications. Monitor for safety in the milieu. Discharge on stabilization. Patient seen. Chart reviewed. Discussed with team. Obtain collateral contact info?as needed Patient educated on: other Reason for continued inpatient stay Substantial Risk for: harm to self and med/psych decompensation
[2022-05-26 06:00] VITALS: BP 132/69; PULSE 88; RESP 18; TEMP 36.2; O2SAT 97
[2022-05-26] MEDS: Gabapentin 100 MG CAPSULE 200 MG PO ×3 (08:11→19:38)
[2022-05-26] MEDS: risperiDONE 1 MG TABLET PO (08:11)
[2022-05-26] MEDS: Escitalopram Oxalate 10 MG TABLET PO (08:11)
[2022-05-26] MEDS: Folic Acid 1 MG TABLET PO (08:11)
[2022-05-26] MEDS: Thiamine HCL 100 MG TABLET PO (08:11)
[2022-05-26] MEDS: Finasteride 5 MG TABLET PO (08:11)
[2022-05-26] MEDS: Nicotine 21 MG PATCH.TD24 TRANSDERMA (08:11)
[2022-05-26] MEDS: Atorvastatin Calcium 10 MG TABLET PO (08:12)
[2022-05-26] MEDS: Fluticasone/Vilanterol 200/25 BLST.W.DEV 1 PUFF INHALE (08:15)
[2022-05-26 09:32] LABS: Estimated Average Glucose 100 mg/dL; Hemoglobin A1c % 5.1 %
[2022-05-26 09:51] LABS: Cholesterol 170 mg/dL; HDL Cholesterol 64 mg/dL; LDL Cholesterol Calculated 85 mg/dl; Triglycerides 109 mg/dL
[2022-05-26 10:02] LABS: Free T4 (Free Thyroxine) 0.82 ng/dL (0.71-1.85)
[2022-05-26 10:55] LABS: Folate 13.1 ng/mL (> or = 4.0); Vitamin B12 246 pg/mL (200-900)
--- NOTE | 2022-05-26 12:01 | P.CONHOSP_ITS ---
History of Present Illness Data of Consult Service Date: 05/26/22 Requesting physician: Isatu Peacock Primary Care Provider: Unknown Physician HPI Reason for consult: medical H&P 67 year old male with history of COPD without exacerbation, hld, bph with history of TURP, DDD and hx compression fracture, alcohol dependence on naltrexone and acamprasate, htn, and depression admitted to psychiatry. Consumes 6-10 shots alcohol daily and has not had alcohol in 6 days. Denies having gone through withdrawal and no hx withdrawal seizures. He smokes 1ppd cigarettes and is doing well on nicotine patches. He has no medical complaints. Review of Systems Review of Systems: General: No fevers, malaise, unintentional weight loss Cardiovascular: No chest pain, palpitations, or leg edema Respiratory: No shortness of breath, wheezing, cough GI: No abdominal pain, nausea, vomiting, diarrhea, constipation, melena, hematochezia Neuro: No headaches, weakness, paresthesias Skin: No rashes or lesions REPLACED BY [facility] Medical History (Updated 05/26/22 @ 12:25 by LUKE Bear) Atherosclerosis of aorta Chronic obstructive pulmonary disease (COPD) Emphysema of lung ETOH abuse HTN (hypertension) Lumbar degenerative disc disease Osteoporosis Tobacco dependence Family History Father No family history of coronary artery disease Surgical History History of basal cell carcinoma excision History of hydrocelectomy History of inguinal hernia repair History of kyphoplasty S/P TURP (status post transurethral resection of prostate) Social History Household Members: None Housing: Apartment Housing Other:: Three family home, lives on third floor Do you presently have visiting nurse or other home services: Yes Alcohol intake: current Patient Tobacco Use Status: Current everyday Tobacco user Tobacco use type: Cigarette Cigarette Packs Per Day: 1 Cigarettes Per Day: 20.0 Years Smoked: 50 Smoked in Last 30 Days: Yes e-Cigarette/Vaping Use: Never Used Patient Interested in Nicotine Replacement: Yes Patient Given Instructions on How to Stop Smoking: Yes Date Education Initiated: 05/25/22 Second Hand Smoke Exposure: Yes Use of substances other than those prescribed or required for medical reasons: No Currently Displaying Signs/Symptoms of Drug Intoxication Withdrawal: No Have you been hit, kicked, punched, or otherwise hurt by someone within the past year? If so, by whom?: No Do you feel safe in your current relationship?: No Current Relationship Is there a partner from a previous relationship who is making you feel unsafe now?: No Are you made to feel afraid or neglected: No Spiritual Healthcare Practices: n/a Restorationist Healthcare Practices: mandaeism Cultural Healthcare Practices: n/a Advance Directives: No Advance Directives Information Provided: No (declined) Do you have thoughts of harming others: None Do you have a plan to hurt others: No Plan Recently lost weight without trying: No Eating poorly because of decreased appetite: No Nutrition Risks: No Nutritional Risk Poor oral hygiene: No service: Yes ([employer], less than a yr.) Sexual orientation: Straight/Heterosexual Meds Allergies Allergy/AdvReac Type Severity Reaction Status Date / Time No Known Allergies Allergy Verified 12/04/21 13:48 Active Medications: Current Medications Acetaminophen (Acetaminophen 325 Mg Tablet) 650 mg PO Q6H PRN PRN Reason: Headache/Pain Mild Scale (1-3) Last Admin: 05/25/22 18:48 Dose: 650 mg Al Hydroxide/Mg Hydroxide (Magnesium Hydrox/Alum Hydrox 30 Ml Oral.Susp) 30 ml PO Q6H PRN PRN Reason: Heartburn/Nausea Albuterol Sulfate (Albuterol Sulfate 90 Mcg 8 Gm Inhaler) 2 puff INHALE RQ4H PRN PRN Reason: Wheezing Last Admin: 05/25/22 09:29 Dose: 2 puff Atorvastatin Calcium (Atorvastatin Calcium 10 Mg Tablet) 10 mg PO DAILY [facility] Last Admin: 05/26/22 08:12 Dose: 10 mg Diphenhydramine HCl (Diphenhydramine Hcl 25 Mg Tablet) 25 mg PO BEDTIME PRN PRN Reason: Insomnia Last Admin: 05/25/22 21:12 Dose: 25 mg Escitalopram Oxalate (Escitalopram Oxalate 10 Mg Tablet) 10 mg PO DAILY [facility] Last Admin: 05/26/22 08:11 Dose: 10 mg Finasteride (Finasteride 5 Mg Tablet) 5 mg PO DAILY [facility] Last Admin: 05/26/22 08:11 Dose: 5 mg Fluticasone/Vilanterol (Fluticasone/Vilanterol 200/25 Blst.W.Dev) 1 puff INHALE RDAILY [facility] Last Admin: 05/26/22 08:15 Dose: 1 puff Folic Acid (Folic Acid 1 Mg Tablet) 1 mg PO DAILY [facility] Last Admin: 05/26/22 08:11 Dose: 1 mg Gabapentin (Gabapentin 100 Mg Capsule) 200 mg PO TID [facility] Last Admin: 05/26/22 08:11 Dose: 200 mg Hydroxyzine HCl (Hydroxyzine Hcl 25 Mg Tablet) 25 mg PO Q6H PRN PRN Reason: Anxiety Magnesium Hydroxide (Milk Of Magnesia 30 Ml Oral.Susp) 30 ml PO DAILY PRN PRN Reason: Constipation Naltrexone HCl (Naltrexone Hcl 50 Mg Tablet) 50 mg PO DAILY PRN PRN Reason: urges Nicotine (Nicotine 21 Mg Patch.Td24) 21 mg TRANSDERMA DAILY [facility] Last Admin: 05/26/22 08:11 Dose: 21 mg Polyethylene Glycol (Polyethylene Glycol 3350 17 Gm Powd.Pack) 17 gm PO DAILY PRN PRN Reason: constipation Risperidone (Risperidone 1 Mg Tablet) 1 mg PO DAILY [facility] Last Admin: 05/26/22 08:11 Dose: 1 mg Tamsulosin HCl (Tamsulosin Hcl 0.4 Mg Capsule) 0.4 mg PO BEDTIME [facility] Last Admin: 05/25/22 21:12 Dose: 0.4 mg Thiamine HCl (Thiamine Hcl 100 Mg Tablet) 100 mg PO DAILY [facility] Last Admin: 05/26/22 08:11 Dose: 100 mg Tiotropium [place] (Tiotropium [place] 18 Mcg Cap.W.Dev) 1 puff INHALE RDAILY [facility] Last Admin: 05/26/22 08:16 Dose: Not Given Physical Exam Vital Signs and Narrative: Vital Signs: Last Vital Signs Temp 97.2 F 05/26/22 06:00 Pulse 88 05/26/22 06:00 Resp 18 05/26/22 06:00 BP 132/69 05/26/22 06:00 Pulse Ox 97 05/26/22 06:00 O2 Del Method 05/26/22 06:00 BMI result Body Mass Index 18.1 Constitutional - Awake and Alert, No apparent distress Eyes - PERRLA, EOMI Cardiovascular - S1S2, RRR, No edema Respiratory - Normal lung expansion, Normal respiratory effort, No respiratory distress, CTA bilaterally Gastrointestinal - NT / ND; +BS; No rebound or guarding - No CVA tenderness Extremities - no calf tenderness bilaterally, no swelling Musculoskeletal - Normal inspection, normal ROM Skin - Warm/Dry Neurological - Alert & oriented x3, CN II-XII in tact. 5/5 strength BUE and BLE Psychological - Appropriate affect Results Labs Labs: Laboratory Results - last 24 hr 05/26/22 05/26/22 05/26/22 08:00 08:00 08:00 Estimat Average Glucose 100 Hemoglobin A1c % 5.1 Magnesium 2.0 Triglycerides 109 Cholesterol 170 LDL Cholesterol, Calc 85 HDL Cholesterol 64 D Vitamin B12 246 Folate 13.1 TSH 2.10 Free T4 0.82 Assessment and Plan (1) MDD (major depressive disorder), recurrent severe, without psychosis: Status: Acute (2) Alcohol use disorder, severe, dependence: Status: Acute Plan 67 year old male with history of COPD without exacerbation, hld, bph with history of TURP, DDD and hx compression fracture, alcohol dependence on naltrexone and acamprasate, htn, and depression admitted to psychiatry consulted on for medical H&P. 1-MDD -Plan per psychiatry 2-Alcohol dependence- stable without withdrawal -Continue naltrexone and acamprasate -LFTs normal -Continue thiamine and folic acid -Vitamin B12 also low. Recommend vitamin b12 1000mcg daily po 3-Tobacco dependence -Continue NRT 4-COPD- controlled without exacerbation -Continue spiriva and albuterol prn 5-DDDlumbar spine -Continue gabapentin -Lidocaine patches prn 6-HLD -Atorvastatin 7-BPH -Continue finasteride 8-Recurrent UTI -Continue methenamine Thank you for allowing me to participate in this consult. Signing off at this time. Please do not hesitate to call for further questions.
[2022-05-26] MEDS: hydrOXYzine HCL 25 MG TABLET PO (12:41)
--- NOTE | 2022-05-26 17:38 | HO.PSYCHPN ---
Subjective Subjective Date of Service: 05/26/22 Reason For Visit: Bipolar I d/O Current or Most Recent Episode Dep Interim History: I evaluated the pt this evening and upon interview, he reports he has been non-adherent with his psych meds x 01/2022. Says there were too many, despite having a VNA he said he was unable to manage his med regimen and that they were shipping me a new med just about weekly. Otherwise, says his medications were working, has been on them about 2-3 years, feels worse off meds. Complains of depression, boredom, and feels very much isolated. Using meals on wheels. Says he chronically relapses on alcohol, drinking 6-10 shots a day, longest length of sobriety was 6 months. Identifies AA and being around people as helpful. Wants to re-start naltrexone. Pt endorsed AH, onset in his late 20s, says nothing makes them go away permanently and I can deal with them. Says it sounds like someone talking in the next room, he can understand the conversation, they're talking about me, at times theyre talking about killing me. He has had periods when the voices went away in his late 30s, attributes this to being on desipramine, it worked for 10 years, unsure why it was discontinued. Sleep has been pretty good, energy is low. Says vistaril works for anxiety. Has some paranoia, comes with the voices, gets hypervigilant, feels people want to harm him. He denies SI. Feels safe. Heoesnt have PCP, needs to reestablish one at [facility]. Doesnt have OP psych providers. Medication Compliance: Yes Side effects from medications: No Attending Groups: Yes Review of Systems Acute medical concerns: No Medical Review of Systems: unchanged Mental Status Exam Mental Status Exam Narrative: A&O. Unkempt appearance, normal body habitus, appears older than stated age. Good eye contact, attentive. No Tics or Tremors. No abnormal involuntary movements. Calm, cooperative, engaged. Non-pressured speech, spontaneous with regular rate and rhythm, normal volume and prosody. No prolonged speech latency or dysarthria. Mood is ?depressed,? affect is appropriate. Endorses passive SI. Denies SIB/HI upon inquiry. Endorses AH. Denies VH or delusional thought content. Thoughts are coherent, organized. No known cognitive or memory impairment. Insight/ Judgment fair and adequate. Diagnostics Vital Signs (24Hr): Vital Signs - 24 hr 05/25/22 21:10 05/26/22 06:00 Temperature 98.2 F 97.2 F Pulse Rate 68 88 Respiratory Rate 18 Blood Pressure 159/82 H 132/69 Pulse Oximetry 98 97 Oxygen Delivery Method Room Air Room Air BMI result Body Mass Index 18.1 Labs Labs: Laboratory Results - last 48 hr 05/26/22 05/26/22 05/26/22 08:00 08:00 08:00 Estimat Average Glucose 100 Hemoglobin A1c % 5.1 Magnesium 2.0 Triglycerides 109 Cholesterol 170 LDL Cholesterol, Calc 85 HDL Cholesterol 64 D Vitamin B12 246 Folate 13.1 TSH 2.10 Free T4 0.82 Medications Medications Current Medications Acetaminophen (Acetaminophen 325 Mg Tablet) 650 mg PO Q6H PRN PRN Reason: Headache/Pain Mild Scale (1-3) Last Admin: 05/25/22 18:48 Dose: 650 mg Al Hydroxide/Mg Hydroxide (Magnesium Hydrox/Alum Hydrox 30 Ml Oral.Susp) 30 ml PO Q6H PRN PRN Reason: Heartburn/Nausea Albuterol Sulfate (Albuterol Sulfate 90 Mcg 8 Gm Inhaler) 2 puff INHALE RQ4H PRN PRN Reason: Wheezing Last Admin: 05/25/22 09:29 Dose: 2 puff Ascorbic Acid (Ascorbic Acid 500 Mg Tablet) 500 mg PO BID [facility] Atorvastatin Calcium (Atorvastatin Calcium 10 Mg Tablet) 10 mg PO DAILY [facility] Last Admin: 05/26/22 08:12 Dose: 10 mg Diphenhydramine HCl (Diphenhydramine Hcl 25 Mg Tablet) 25 mg PO BEDTIME PRN PRN Reason: Insomnia Last Admin: 05/25/22 21:12 Dose: 25 mg Escitalopram Oxalate (Escitalopram Oxalate 10 Mg Tablet) 10 mg PO DAILY [facility] Last Admin: 05/26/22 08:11 Dose: 10 mg Finasteride (Finasteride 5 Mg Tablet) 5 mg PO DAILY [facility] Last Admin: 05/26/22 08:11 Dose: 5 mg Fluticasone/Vilanterol (Fluticasone/Vilanterol 200/25 Blst.W.Dev) 1 puff INHALE RDAILY [facility] Last Admin: 05/26/22 08:15 Dose: 1 puff Folic Acid (Folic Acid 1 Mg Tablet) 1 mg PO DAILY [facility] Last Admin: 05/26/22 08:11 Dose: 1 mg Gabapentin (Gabapentin 100 Mg Capsule) 200 mg PO TID [facility] Last Admin: 05/26/22 14:50 Dose: 200 mg Hydroxyzine HCl (Hydroxyzine Hcl 25 Mg Tablet) 25 mg PO Q6H PRN PRN Reason: Anxiety Last Admin: 05/26/22 12:41 Dose: 25 mg Magnesium Hydroxide (Milk Of Magnesia 30 Ml Oral.Susp) 30 ml PO DAILY PRN PRN Reason: Constipation Naltrexone HCl (Naltrexone Hcl 50 Mg Tablet) 50 mg PO DAILY [facility] Nicotine (Nicotine 21 Mg Patch.Td24) 21 mg TRANSDERMA DAILY [facility] Last Admin: 05/26/22 08:11 Dose: 21 mg Polyethylene Glycol (Polyethylene Glycol 3350 17 Gm Powd.Pack) 17 gm PO DAILY PRN PRN Reason: constipation Risperidone (Risperidone 1 Mg Tablet) 1 mg PO DAILY [facility] Last Admin: 05/26/22 08:11 Dose: 1 mg Tamsulosin HCl (Tamsulosin Hcl 0.4 Mg Capsule) 0.4 mg PO BEDTIME [facility] Last Admin: 05/25/22 21:12 Dose: 0.4 mg Thiamine HCl (Thiamine Hcl 100 Mg Tablet) 100 mg PO DAILY [facility] Last Admin: 05/26/22 08:11 Dose: 100 mg Tiotropium [place] (Tiotropium [place] 18 Mcg Cap.W.Dev) 1 puff INHALE RDAILY [facility] Last Admin: 05/26/22 08:16 Dose: Not Given Allergies Allergies Allergy/AdvReac Type Severity Reaction Status Date / Time No Known Allergies Allergy Verified 12/04/21 13:48 Assessment & Plan Assessment & Plan (1) MDD (major depressive disorder), recurrent severe, without psychosis: Status: Acute Code(s): F33.2 - Major depressive disorder, recurrent severe without psychotic features (2) Alcohol use disorder, severe, dependence: Status: Acute Code(s): F10.20 - Alcohol dependence, uncomplicated Plan Aris is a 67 y.o. male who carries a dx of MDD with psychotic features. He presented to [facility] crisis on 05/25/22 due to SI with plan to OD on his medication. Precipitating factors include that pt has been non-adherent with meds, chronic alcoholic, feels lonely. He consumes 6-10 shots alcohol daily and has not had alcohol in 6 days, presumably has already gone through withdrawal. Hx of multiple psych admissions for SI and hx of SA by overdose, jumping out of window. Plan: Re-start home medications, lexapro 10 mg daily, risperdal 1 mg for psychotic depression 05/28: does not want changes to his med regimen, will re-start naltrexone scheduled at 50 mg daily Q15 min safety checks, CV Monitor response to medications. Monitor for safety in the milieu. Discharge on stabilization. Patient seen. Chart reviewed. Discussed with team. Obtain collateral contact info?as needed I spent minutes with the patient and/or on the patient floor today, greater than?50% of which was spent counseling/coordinating care. Patient educated on: diagnosis, medication risk/benefits and therapeutic strategies Reason for contiued inpatient stay Substantial Risk for: inability to function, rapid decompensation and med/psych decompensation
[2022-05-26 17:58] VITALS: BP 118/68; PULSE 69; RESP 16; TEMP 36.4; O2SAT 98
[2022-05-26] MEDS: Tamsulosin HCL 0.4 MG CAPSULE PO (19:38)
[2022-05-26] MEDS: diphenhydrAMINE HCL 25 MG TABLET PO (21:01)
[2022-05-26] MEDS: Ascorbic Acid 500 MG TABLET PO (21:01)
[2022-05-27 06:00] VITALS: BP 139/87; PULSE 61; RESP 18; TEMP 36.6; O2SAT 95
[2022-05-27] MEDS: Atorvastatin Calcium 10 MG TABLET PO (07:44)
[2022-05-27] MEDS: Ascorbic Acid 500 MG TABLET PO ×2 (07:44→20:31)
[2022-05-27] MEDS: Nicotine 21 MG PATCH.TD24 TRANSDERMA (07:44)
[2022-05-27] MEDS: Folic Acid 1 MG TABLET PO (07:45)
[2022-05-27] MEDS: Finasteride 5 MG TABLET PO (07:45)
[2022-05-27] MEDS: Gabapentin 100 MG CAPSULE 200 MG PO ×3 (07:45→20:31)
[2022-05-27] MEDS: Naltrexone HCl 50 MG TABLET PO ×2 (07:45→20:31)
[2022-05-27] MEDS: Thiamine HCL 100 MG TABLET PO (07:45)
[2022-05-27] MEDS: Escitalopram Oxalate 10 MG TABLET PO (07:45)
[2022-05-27] MEDS: Acetaminophen 325 MG TABLET 650 MG PO (07:49)
[2022-05-27] MEDS: risperiDONE 1 MG TABLET PO (08:18)
--- NOTE | 2022-05-27 11:56 | PC.NURSE ---
Pt signed a 3 day up on Tuesday, 06/01. , ANA ROSA, and UR aware.
[2022-05-27 12:19] VITALS: BMI 19.5
[2022-05-27 18:00] VITALS: BP 150/83; PULSE 78; RESP 16; TEMP 36.5; O2SAT 97
--- NOTE | 2022-05-27 19:45 | HO.PSYCHPN ---
Subjective Subjective Date of Service: 05/27/22 Reason For Visit: Bipolar I d/O Current or Most Recent Episode Dep Interim History: Discussed with team. Pt says naltrexone knocks me out, wants it at bedtime, felt like a zombie all morning right up until 2-3 this afternoon. Endorses anxiety, says PRN vistaril helps. He hasnt had cravings for alcohol. Signed a 3 day notice, wants to discharge Tuesday. Mental Status Exam Mental Status Exam Narrative: A&O. Unkempt appearance, normal body habitus, appears older than stated age. Good eye contact, attentive. No Tics or Tremors. No abnormal involuntary movements. Calm, cooperative, engaged. Non-pressured speech, spontaneous with regular rate and rhythm, normal volume and prosody. No prolonged speech latency or dysarthria. Mood is ?depressed,? affect is appropriate. Endorses passive SI. Denies SIB/HI upon inquiry. Endorses AH. Denies VH or delusional thought content. Thoughts are coherent, organized. No known cognitive or memory impairment. Insight/ Judgment fair and adequate. Diagnostics Vital Signs (24Hr): Vital Signs - 24 hr 05/27/22 06:00 05/27/22 18:00 Temperature 97.8 F 97.7 F Pulse Rate 61 78 Respiratory Rate 18 16 Blood Pressure 139/87 150/83 H Pulse Oximetry 95 97 Oxygen Delivery Method Room Air Room Air BMI result Body Mass Index 19.5 Labs Labs: Laboratory Results - last 48 hr 05/26/22 05/26/22 05/26/22 08:00 08:00 08:00 Estimat Average Glucose 100 Hemoglobin A1c % 5.1 Magnesium 2.0 Triglycerides 109 Cholesterol 170 LDL Cholesterol, Calc 85 HDL Cholesterol 64 D Vitamin B12 246 Folate 13.1 TSH 2.10 Free T4 0.82 Medications Medications Current Medications Acetaminophen (Acetaminophen 325 Mg Tablet) 650 mg PO Q6H PRN PRN Reason: Headache/Pain Mild Scale (1-3) Last Admin: 05/27/22 07:49 Dose: 650 mg Al Hydroxide/Mg Hydroxide (Magnesium Hydrox/Alum Hydrox 30 Ml Oral.Susp) 30 ml PO Q6H PRN PRN Reason: Heartburn/Nausea Albuterol Sulfate (Albuterol Sulfate 90 Mcg 8 Gm Inhaler) 2 puff INHALE RQ4H PRN PRN Reason: Wheezing Last Admin: 05/25/22 09:29 Dose: 2 puff Ascorbic Acid (Ascorbic Acid 500 Mg Tablet) 500 mg PO BID [facility] Last Admin: 05/27/22 07:44 Dose: 500 mg Atorvastatin Calcium (Atorvastatin Calcium 10 Mg Tablet) 10 mg PO DAILY [facility] Last Admin: 05/27/22 07:44 Dose: 10 mg Diphenhydramine HCl (Diphenhydramine Hcl 25 Mg Tablet) 25 mg PO BEDTIME PRN PRN Reason: Insomnia Last Admin: 05/26/22 21:01 Dose: 25 mg Escitalopram Oxalate (Escitalopram Oxalate 10 Mg Tablet) 10 mg PO DAILY [facility] Last Admin: 05/27/22 07:45 Dose: 10 mg Finasteride (Finasteride 5 Mg Tablet) 5 mg PO DAILY [facility] Last Admin: 05/27/22 07:45 Dose: 5 mg Fluticasone/Vilanterol (Fluticasone/Vilanterol 200/25 Blst.W.Dev) 1 puff INHALE RDAILY [facility] Last Admin: 05/27/22 07:48 Dose: Not Given Folic Acid (Folic Acid 1 Mg Tablet) 1 mg PO DAILY [facility] Last Admin: 05/27/22 07:45 Dose: 1 mg Gabapentin (Gabapentin 100 Mg Capsule) 200 mg PO TID [facility] Last Admin: 05/27/22 14:49 Dose: 200 mg Hydroxyzine HCl (Hydroxyzine Hcl 25 Mg Tablet) 25 mg PO Q6H PRN PRN Reason: Anxiety Last Admin: 05/26/22 12:41 Dose: 25 mg Magnesium Hydroxide (Milk Of Magnesia 30 Ml Oral.Susp) 30 ml PO DAILY PRN PRN Reason: Constipation Naltrexone HCl (Naltrexone Hcl 50 Mg Tablet) 50 mg PO DAILY [facility] Last Admin: 05/27/22 07:45 Dose: 50 mg Nicotine (Nicotine 21 Mg Patch.Td24) 21 mg TRANSDERMA DAILY [facility] Last Admin: 05/27/22 07:44 Dose: 21 mg Polyethylene Glycol (Polyethylene Glycol 3350 17 Gm Powd.Pack) 17 gm PO DAILY PRN PRN Reason: constipation Risperidone (Risperidone 1 Mg Tablet) 1 mg PO DAILY [facility] Last Admin: 05/27/22 08:18 Dose: 1 mg Tamsulosin HCl (Tamsulosin Hcl 0.4 Mg Capsule) 0.4 mg PO BEDTIME [facility] Last Admin: 05/26/22 19:38 Dose: 0.4 mg Thiamine HCl (Thiamine Hcl 100 Mg Tablet) 100 mg PO DAILY [facility] Last Admin: 05/27/22 07:45 Dose: 100 mg Tiotropium [place] (Tiotropium [place] 18 Mcg Cap.W.Dev) 1 puff INHALE RDAILY [facility] Last Admin: 05/27/22 07:46 Dose: 1 puff Allergies Allergies Allergy/AdvReac Type Severity Reaction Status Date / Time No Known Allergies Allergy Verified 12/04/21 13:48 Assessment & Plan Assessment & Plan (1) MDD (major depressive disorder), recurrent severe, without psychosis: Status: Acute Code(s): F33.2 - Major depressive disorder, recurrent severe without psychotic features (2) Alcohol use disorder, severe, dependence: Status: Acute Code(s): F10.20 - Alcohol dependence, uncomplicated Plan Aris is a 67 y.o. male who carries a dx of MDD with psychotic features. He presented to [facility] crisis on 05/25/22 due to SI with plan to OD on his medication. Precipitating factors include that pt has been non-adherent with meds, chronic alcoholic, feels lonely. He consumes 6-10 shots alcohol daily and has not had alcohol in 6 days, presumably has already gone through withdrawal. Hx of multiple psych admissions for SI and hx of SA by overdose, jumping out of window. Plan: Re-start home medications, lexapro 10 mg daily, risperdal 1 mg for psychotic depression 05/26: does not want changes to his med regimen, will re-start naltrexone scheduled at 50 mg daily 05/27: No med changes, continue to utilize PRN vistaril Q15 min safety checks, CV Monitor response to medications. Monitor for safety in the milieu. Discharge on stabilization. Patient seen. Chart reviewed. Discussed with team. Obtain collateral contact info?as needed I spent minutes with the patient and/or on the patient floor today, greater than?50% of which was spent counseling/coordinating care. Reason for contiued inpatient stay Substantial Risk for: inability to function, rapid decompensation and med/psych decompensation
[2022-05-27] MEDS: Tamsulosin HCL 0.4 MG CAPSULE PO (20:31)
[2022-05-28] MEDS: Acetaminophen 325 MG TABLET 650 MG PO ×2 (04:16→14:36)
[2022-05-28] MEDS: diphenhydrAMINE HCL 25 MG TABLET PO ×2 (04:16→21:27)
[2022-05-28] MEDS: Finasteride 5 MG TABLET PO (08:13)
[2022-05-28] MEDS: Fluticasone/Vilanterol 200/25 BLST.W.DEV 1 PUFF INHALE (08:13)
[2022-05-28] MEDS: Ascorbic Acid 500 MG TABLET PO ×2 (08:14→21:26)
[2022-05-28] MEDS: risperiDONE 1 MG TABLET PO (08:14)
[2022-05-28] MEDS: Atorvastatin Calcium 10 MG TABLET PO (08:14)
[2022-05-28] MEDS: Gabapentin 100 MG CAPSULE 200 MG PO ×3 (08:14→21:27)
[2022-05-28] MEDS: Nicotine 21 MG PATCH.TD24 TRANSDERMA (08:14)
[2022-05-28] MEDS: Escitalopram Oxalate 10 MG TABLET PO (08:14)
[2022-05-28] MEDS: Folic Acid 1 MG TABLET PO (08:14)
[2022-05-28] MEDS: Thiamine HCL 100 MG TABLET PO (08:14)
[2022-05-28] MEDS: Triamcinolone Acet 0.1 % Cream 15 GM TUBE 1 APPL TOPICAL ×2 (08:23→21:28)
[2022-05-28 09:07] VITALS: BP 135/71; PULSE 91; RESP 18; TEMP 36.7; O2SAT 96
[2022-05-28] MEDS: hydrOXYzine HCL 25 MG TABLET PO (14:36)
[2022-05-28 16:12] VITALS: BP 168/78; PULSE 61; RESP 16; TEMP 36.8; O2SAT 97
--- NOTE | 2022-05-28 17:09 | P.PNPSI_ITS ---
Subjective Subjective Date of Service: 05/28/22 Reason For Visit: Bipolar I d/O Current or Most Recent Episode Dep Interim History: Discussed with team. Says hydroxyzine is working well, anxiety is okay, sleep is so so, woke up yesterday morning at 4am, falls back to sleep, prn benadryl helped him. Says i think the meds are working. still cant get a hold of anyone from [facility] for intake. T/W brought in methenamine from [facility], as pt says he takes this daily to prevent UTI and was not in hospital formulary. Thinks naltrexone helped with sleep, denies cravings, daytime energy is better. Medication Compliance: Yes Side effects from medications: No Attending Groups: Yes Review of Systems Acute medical concerns: No Medical Review of Systems: unchanged Mental Status Exam Mental Status Exam Narrative: A&O. Unkempt appearance, normal body habitus, appears older than stated age. Good eye contact, attentive. No Tics or Tremors. No abnormal involuntary movements. Calm, cooperative, engaged. Non-pressured speech, spontaneous with regular rate and rhythm, normal volume and prosody. No prolonged speech latency or dysarthria. Mood is ?depressed,? affect is appropriate. Endorses passive SI. Denies SIB/HI upon inquiry. Endorses AH. Denies VH or delusional thought content. Thoughts are coherent, organized. No known cognitive or memory impairment. Insight/ Judgment fair and adequate. Diagnostics Vital Signs (24Hr): Vital Signs - 24 hr 05/27/22 18:00 05/28/22 09:07 05/28/22 16:12 Temperature 97.7 F 98.1 F 98.3 F Pulse Rate 78 91 61 Respiratory Rate 16 18 16 Blood Pressure 150/83 H 135/71 168/78 H Pulse Oximetry 97 96 97 Oxygen Delivery Method Room Air Room Air Room Air BMI result Body Mass Index 19.5 Medications Medications Current Medications Acetaminophen (Acetaminophen 325 Mg Tablet) 650 mg PO Q6H PRN PRN Reason: Headache/Pain Mild Scale (1-3) Last Admin: 05/28/22 14:36 Dose: 650 mg Al Hydroxide/Mg Hydroxide (Magnesium Hydrox/Alum Hydrox 30 Ml Oral.Susp) 30 ml PO Q6H PRN PRN Reason: Heartburn/Nausea Albuterol Sulfate (Albuterol Sulfate 90 Mcg 8 Gm Inhaler) 2 puff INHALE RQ4H PRN PRN Reason: Wheezing Last Admin: 05/25/22 09:29 Dose: 2 puff Ascorbic Acid (Ascorbic Acid 500 Mg Tablet) 500 mg PO BID [facility] Last Admin: 05/28/22 08:14 Dose: 500 mg Atorvastatin Calcium (Atorvastatin Calcium 10 Mg Tablet) 10 mg PO DAILY [facility] Last Admin: 05/28/22 08:14 Dose: 10 mg Diphenhydramine HCl (Diphenhydramine Hcl 25 Mg Tablet) 25 mg PO BEDTIME PRN PRN Reason: Insomnia Last Admin: 05/28/22 04:16 Dose: 25 mg Escitalopram Oxalate (Escitalopram Oxalate 10 Mg Tablet) 10 mg PO DAILY [facility] Last Admin: 05/28/22 08:14 Dose: 10 mg Finasteride (Finasteride 5 Mg Tablet) 5 mg PO DAILY [facility] Last Admin: 05/28/22 08:13 Dose: 5 mg Fluticasone/Vilanterol (Fluticasone/Vilanterol 200/25 Blst.W.Dev) 1 puff INHALE RDAILY [facility] Last Admin: 05/28/22 08:13 Dose: 1 puff Folic Acid (Folic Acid 1 Mg Tablet) 1 mg PO DAILY [facility] Last Admin: 05/28/22 08:14 Dose: 1 mg Gabapentin (Gabapentin 100 Mg Capsule) 200 mg PO TID [facility] Last Admin: 05/28/22 14:36 Dose: 200 mg Hydroxyzine HCl (Hydroxyzine Hcl 25 Mg Tablet) 25 mg PO Q6H PRN PRN Reason: Anxiety Last Admin: 05/28/22 14:36 Dose: 25 mg Magnesium Hydroxide (Milk Of Magnesia 30 Ml Oral.Susp) 30 ml PO DAILY PRN PRN Reason: Constipation Naltrexone HCl (Naltrexone Hcl 50 Mg Tablet) 50 mg PO BEDTIME [facility] Last Admin: 05/27/22 20:31 Dose: 50 mg Nicotine (Nicotine 21 Mg Patch.Td24) 21 mg TRANSDERMA DAILY [facility] Last Admin: 05/28/22 08:14 Dose: 21 mg Polyethylene Glycol (Polyethylene Glycol 3350 17 Gm Powd.Pack) 17 gm PO DAILY PRN PRN Reason: constipation Risperidone (Risperidone 1 Mg Tablet) 1 mg PO DAILY [facility] Last Admin: 05/28/22 08:14 Dose: 1 mg Tamsulosin HCl (Tamsulosin Hcl 0.4 Mg Capsule) 0.4 mg PO BEDTIME [facility] Last Admin: 05/27/22 20:31 Dose: 0.4 mg Thiamine HCl (Thiamine Hcl 100 Mg Tablet) 100 mg PO DAILY [facility] Last Admin: 05/28/22 08:14 Dose: 100 mg Tiotropium [place] (Tiotropium [place] 18 Mcg Cap.W.Dev) 1 puff INHALE RDAILY [facility] Last Admin: 05/28/22 08:27 Dose: Not Given Triamcinolone Acetonide (Triamcinolone Acet 0.1 % Cream 15 Gm Tube) 1 appl TOPICAL BID [facility] Last Admin: 05/28/22 08:23 Dose: 1 appl Allergies Allergies Allergy/AdvReac Type Severity Reaction Status Date / Time No Known Allergies Allergy Verified 12/04/21 13:48 Assessment & Plan Assessment & Plan (1) MDD (major depressive disorder), recurrent severe, without psychosis: Status: Acute Code(s): F33.2 - Major depressive disorder, recurrent severe without psychotic features (2) Alcohol use disorder, severe, dependence: Status: Acute Code(s): F10.20 - Alcohol dependence, uncomplicated Plan Aris is a 67 y.o. male who carries a dx of MDD with psychotic features. He presented [facility] on 05/[facility]/22 due to SI with plan to OD on his medication. Precipitating factors include that pt has been non-adherent with meds, chronic alcoholic, feels lonely. He consumes 6-10 shots alcohol daily and has not had alcohol in 6 days, presumably has already gone through withdrawal. Hx of multiple psych admissions for SI and hx of SA by overdose, jumping out of window. Plan: Re-start home medications, lexapro 10 mg daily, risperdal 1 mg for psychotic depression 05/26: does not want changes to his med regimen, will re-start naltrexone scheduled at 50 mg daily 05/27: No med changes, continue to utilize PRN vistaril 05/28: No med changes, progressing to baseline Q15 min safety checks, CV Monitor response to medications. Monitor for safety in the milieu. Discharge on stabilization. Patient seen. Chart reviewed. Discussed with team. Obtain collateral contact info?as needed I spent minutes with the patient and/or on the patient floor today, greater than?50% of which was spent counseling/coordinating care. Patient educated on: diagnosis, medication risk/benefits and therapeutic strategies Reason for contiued inpatient stay Substantial Risk for: inability to function, rapid decompensation and med/psych decompensation
[2022-05-28] MEDS: Naltrexone HCl 50 MG TABLET PO (21:26)
[2022-05-28] MEDS: Tamsulosin HCL 0.4 MG CAPSULE PO (21:27)
[2022-05-29] MEDS: hydrOXYzine HCL 25 MG TABLET PO (01:45)
[2022-05-29 06:00] VITALS: BP 131/86; PULSE 68; RESP 18; TEMP 36.6; O2SAT 97
[2022-05-29] MEDS: Triamcinolone Acet 0.1 % Cream 15 GM TUBE 1 APPL TOPICAL ×2 (08:03→19:37)
[2022-05-29] MEDS: Fluticasone/Vilanterol 200/25 BLST.W.DEV 1 PUFF INHALE (08:03)
[2022-05-29] MEDS: Nicotine 21 MG PATCH.TD24 TRANSDERMA (08:04)
[2022-05-29] MEDS: Escitalopram Oxalate 10 MG TABLET PO (08:06)
[2022-05-29] MEDS: Ascorbic Acid 500 MG TABLET PO ×2 (08:06→19:28)
[2022-05-29] MEDS: Finasteride 5 MG TABLET PO (08:06)
[2022-05-29] MEDS: Atorvastatin Calcium 10 MG TABLET PO (08:06)
[2022-05-29] MEDS: Folic Acid 1 MG TABLET PO (08:06)
[2022-05-29] MEDS: risperiDONE 1 MG TABLET PO (08:06)
[2022-05-29] MEDS: Gabapentin 100 MG CAPSULE 200 MG PO ×3 (08:06→19:28)
[2022-05-29] MEDS: Thiamine HCL 100 MG TABLET PO (08:06)
[2022-05-29 18:00] VITALS: BP 156/74; PULSE 57; RESP 16; TEMP 36.4; O2SAT 98
--- NOTE | 2022-05-29 18:34 | P.PNPSI_ITS ---
Subjective Subjective Date of Service: 05/29/22 Reason For Visit: Bipolar I d/O Current or Most Recent Episode Dep Interim History: Discussed with team. Patient says he is feeling well today. He is progressing towards baseline and DC next week. Says i think the meds are working. No SI. Review of Systems Review of Systems [facility]: No c/o chest pain, palpitations, no SOB [facility]: No c/o dizziness, headache GI: No c/o Nausea, Vomiting, diarrhea, constipation or heartburn Mental Status Exam Mental Status Exam Narrative: A&O. Unkempt appearance, normal body habitus, appears older than stated age. Good eye contact, attentive. No Tics or Tremors. No abnormal involuntary movements. Calm, cooperative, engaged. Non-pressured speech, spontaneous with regular rate and rhythm, normal volume and prosody. No prolonged speech latency or dysarthria. Mood is ?depressed,? affect is appropriate. Endorses passive SI. Denies SIB/HI upon inquiry. Endorses AH. Denies VH or delusional thought content. Thoughts are coherent, organized. No known cognitive or memory impairment. Insight/ Judgment fair and adequate. Diagnostics Vital Signs (24Hr): Vital Signs - 24 hr 05/29/22 06:00 Temperature 97.9 F Pulse Rate 68 Respiratory Rate 18 Blood Pressure 131/86 Pulse Oximetry 97 BMI result Body Mass Index 19.5 Medications Medications Current Medications Acetaminophen (Acetaminophen 325 Mg Tablet) 650 mg PO Q6H PRN PRN Reason: Headache/Pain Mild Scale (1-3) Last Admin: 05/28/22 14:36 Dose: 650 mg Al Hydroxide/Mg Hydroxide (Magnesium Hydrox/Alum Hydrox 30 Ml Oral.Susp) 30 ml PO Q6H PRN PRN Reason: Heartburn/Nausea Albuterol Sulfate (Albuterol Sulfate 90 Mcg 8 Gm Inhaler) 2 puff INHALE RQ4H PRN PRN Reason: Wheezing Last Admin: 05/25/22 09:29 Dose: 2 puff Ascorbic Acid (Ascorbic Acid 500 Mg Tablet) 500 mg PO BID [facility] Last Admin: 05/29/22 08:06 Dose: 500 mg Atorvastatin Calcium (Atorvastatin Calcium 10 Mg Tablet) 10 mg PO DAILY [facility] Last Admin: 05/29/22 08:06 Dose: 10 mg Diphenhydramine HCl (Diphenhydramine Hcl 25 Mg Tablet) 25 mg PO BEDTIME PRN PRN Reason: Insomnia Last Admin: 05/28/22 21:27 Dose: 25 mg Escitalopram Oxalate (Escitalopram Oxalate 10 Mg Tablet) 10 mg PO DAILY [facility] Last Admin: 05/29/22 08:06 Dose: 10 mg Finasteride (Finasteride 5 Mg Tablet) 5 mg PO DAILY [facility] Last Admin: 05/29/22 08:06 Dose: 5 mg Fluticasone/Vilanterol (Fluticasone/Vilanterol 200/25 Blst.W.Dev) 1 puff INHALE RDAILY [facility] Last Admin: 05/29/22 08:03 Dose: 1 puff Folic Acid (Folic Acid 1 Mg Tablet) 1 mg PO DAILY [facility] Last Admin: 05/29/22 08:06 Dose: 1 mg Gabapentin (Gabapentin 100 Mg Capsule) 200 mg PO TID [facility] Last Admin: 05/29/22 14:51 Dose: 200 mg Hydroxyzine HCl (Hydroxyzine Hcl 25 Mg Tablet) 25 mg PO Q6H PRN PRN Reason: Anxiety Last Admin: 05/29/22 01:45 Dose: 25 mg Magnesium Hydroxide (Milk Of Magnesia 30 Ml Oral.Susp) 30 ml PO DAILY PRN PRN Reason: Constipation Naltrexone HCl (Naltrexone Hcl 50 Mg Tablet) 50 mg PO BEDTIME [facility] Last Admin: 05/28/22 21:26 Dose: 50 mg Nicotine (Nicotine 21 Mg Patch.Td24) 21 mg TRANSDERMA DAILY [facility] Last Admin: 05/29/22 08:04 Dose: 21 mg Pt Own (Methenamine (1 Gm Tablet)) 1 gm PO BID [facility] Last Admin: 05/29/22 08:03 Dose: 1 gm Polyethylene Glycol (Polyethylene Glycol 3350 17 Gm Powd.Pack) 17 gm PO DAILY PRN PRN Reason: constipation Risperidone (Risperidone 1 Mg Tablet) 1 mg PO DAILY [facility] Last Admin: 05/29/22 08:06 Dose: 1 mg Tamsulosin HCl (Tamsulosin Hcl 0.4 Mg Capsule) 0.4 mg PO BEDTIME [facility] Last Admin: 05/28/22 21:27 Dose: 0.4 mg Thiamine HCl (Thiamine Hcl 100 Mg Tablet) 100 mg PO DAILY [facility] Last Admin: 05/29/22 08:06 Dose: 100 mg Tiotropium [place] (Tiotropium [place] 18 Mcg Cap.W.Dev) 1 puff INHALE RDAILY [facility] Last Admin: 05/29/22 08:03 Dose: 1 puff Triamcinolone Acetonide (Triamcinolone Acet 0.1 % Cream 15 Gm Tube) 1 appl TOPICAL BID [facility] Last Admin: 05/29/22 08:03 Dose: 1 appl Allergies Allergies Allergy/AdvReac Type Severity Reaction Status Date / Time No Known Allergies Allergy Verified 12/04/21 13:48 Assessment & Plan Assessment & Plan (1) MDD (major depressive disorder), recurrent severe, without psychosis: Status: Acute Code(s): F33.2 - Major depressive disorder, recurrent severe without psychotic features (2) Alcohol use disorder, severe, dependence: Status: Acute Code(s): F10.20 - Alcohol dependence, uncomplicated Plan Aris is a 67 y.o. male who carries a dx of MDD with psychotic features. [facility]22 due to SI with plan to OD on his medication. Precipitating factors include that pt has been non-adherent with meds, chronic alcoholic, feels lonely. He consumes 6-10 shots alcohol daily and has not had alcohol in 6 days, presumably has already gone through withdrawal. Hx of multiple psych admissions for SI and hx of SA by overdose, jumping out of window. Plan: Re-start home medications, lexapro 10 mg daily, risperdal 1 mg for psychotic depression 05/26: does not want changes to his med regimen, will re-start naltrexone scheduled at 50 mg daily 05/27: No med changes, continue to utilize PRN vistaril 05/28: No med changes, progressing to baseline Q15 min safety checks, CV Monitor response to medications. Monitor for safety in the milieu. Discharge on stabilization. Patient seen. Chart reviewed. Discussed with team. Obtain collateral contact info?as needed 05/29: Continue current plan. I spent minutes with the patient and/or on the patient floor today, greater than?50% of which was spent counseling/coordinating care. Reason for contiued inpatient stay Substantial Risk for: inability to function and rapid decompensation
[2022-05-29] MEDS: Naltrexone HCl 50 MG TABLET PO (19:28)
[2022-05-29] MEDS: Tamsulosin HCL 0.4 MG CAPSULE PO (19:28)
[2022-05-30] MEDS: hydrOXYzine HCL 25 MG TABLET PO ×2 (00:56→18:03)
[2022-05-30] MEDS: diphenhydrAMINE HCL 25 MG TABLET PO (00:56)
[2022-05-30 06:00] VITALS: BP 144/79; PULSE 68; RESP 18; TEMP 36.4; O2SAT 97
[2022-05-30] MEDS: Fluticasone/Vilanterol 200/25 BLST.W.DEV 1 PUFF INHALE (08:16)
[2022-05-30] MEDS: Finasteride 5 MG TABLET PO (08:17)
[2022-05-30] MEDS: Gabapentin 100 MG CAPSULE 200 MG PO ×3 (08:17→21:00)
[2022-05-30] MEDS: Ascorbic Acid 500 MG TABLET PO ×2 (08:17→21:00)
[2022-05-30] MEDS: Triamcinolone Acet 0.1 % Cream 15 GM TUBE 1 APPL TOPICAL (08:17)
[2022-05-30] MEDS: risperiDONE 1 MG TABLET PO (08:18)
[2022-05-30] MEDS: Nicotine 21 MG PATCH.TD24 TRANSDERMA (08:18)
[2022-05-30] MEDS: Thiamine HCL 100 MG TABLET PO (08:18)
[2022-05-30] MEDS: Folic Acid 1 MG TABLET PO (08:18)
[2022-05-30] MEDS: Escitalopram Oxalate 10 MG TABLET PO (08:18)
[2022-05-30] MEDS: Atorvastatin Calcium 10 MG TABLET PO (09:12)
--- NOTE | 2022-05-30 14:34 | HO.PSYCHPN ---
Subjective Subjective Date of Service: 05/30/22 Reason For Visit: Bipolar I d/O Current or Most Recent Episode Dep Interim History: Discussed with team. Patient says he is feeling well today. He is progressing towards baseline and DC next week. Says i think the meds are working. No SI. Review of Systems Review of Systems [facility]S: No c/o chest pain, palpitations, no SOB RIB [facility]ER: No c/o dizziness, headache GI: No c/o Nausea, Vomiting, diarrhea, constipation or heartburn Mental Status Exam Mental Status Exam Narrative: A&O. normal body habitus, appears older than stated age. Good eye contact, attentive. No Tics or Tremors. No abnormal involuntary movements. Calm, cooperative, engaged. Non-pressured speech, spontaneous with regular rate and rhythm, normal volume and prosody. No prolonged speech latency or dysarthria. Mood is ?depressed,? affect is appropriate. Endorses passive SI. Denies SIB/HI upon inquiry. Endorses AH. Denies VH or delusional thought content. Thoughts are coherent, organized. No known cognitive or memory impairment. Insight/ Judgment fair and adequate. Diagnostics Vital Signs (24Hr): Vital Signs - 24 hr 05/30/22 06:00 05/30/22 15:58 Temperature 97.6 F 98.1 F Pulse Rate 68 72 Respiratory Rate 18 Blood Pressure 144/79 H 128/82 Pulse Oximetry 97 99 Oxygen Delivery Method Room Air BMI result Body Mass Index 19.5 Medications Medications Current Medications Acetaminophen (Acetaminophen 325 Mg Tablet) 650 mg PO Q6H PRN PRN Reason: Headache/Pain Mild Scale (1-3) Last Admin: 05/28/22 14:36 Dose: 650 mg Al Hydroxide/Mg Hydroxide (Magnesium Hydrox/Alum Hydrox 30 Ml Oral.Susp) 30 ml PO Q6H PRN PRN Reason: Heartburn/Nausea Albuterol Sulfate (Albuterol Sulfate 90 Mcg 8 Gm Inhaler) 2 puff INHALE RQ4H PRN PRN Reason: Wheezing Last Admin: 05/25/22 09:29 Dose: 2 puff Ascorbic Acid (Ascorbic Acid 500 Mg Tablet) 500 mg PO BID [facility] Last Admin: 05/30/22 08:17 Dose: 500 mg Atorvastatin Calcium (Atorvastatin Calcium 10 Mg Tablet) 10 mg PO DAILY [facility] Last Admin: 05/30/22 09:12 Dose: 10 mg Diphenhydramine HCl (Diphenhydramine Hcl 25 Mg Tablet) 25 mg PO BEDTIME PRN PRN Reason: Insomnia Last Admin: 05/30/22 00:56 Dose: 25 mg Escitalopram Oxalate (Escitalopram Oxalate 10 Mg Tablet) 10 mg PO DAILY [facility] Last Admin: 05/30/22 08:18 Dose: 10 mg Finasteride (Finasteride 5 Mg Tablet) 5 mg PO DAILY [facility] Last Admin: 05/30/22 08:17 Dose: 5 mg Fluticasone/Vilanterol (Fluticasone/Vilanterol 200/25 Blst.W.Dev) 1 puff INHALE RDAILY [facility] Last Admin: 05/30/22 08:16 Dose: 1 puff Folic Acid (Folic Acid 1 Mg Tablet) 1 mg PO DAILY [facility] Last Admin: 05/30/22 08:18 Dose: 1 mg Gabapentin (Gabapentin 100 Mg Capsule) 200 mg PO TID [facility] Last Admin: 05/30/22 14:05 Dose: 200 mg Hydroxyzine HCl (Hydroxyzine Hcl 25 Mg Tablet) 25 mg PO Q6H PRN PRN Reason: Anxiety Last Admin: 05/30/22 18:03 Dose: 25 mg Magnesium Hydroxide (Milk Of Magnesia 30 Ml Oral.Susp) 30 ml PO DAILY PRN PRN Reason: Constipation Naltrexone HCl (Naltrexone Hcl 50 Mg Tablet) 50 mg PO BEDTIME [facility] Last Admin: 05/29/22 19:28 Dose: 50 mg Nicotine (Nicotine 21 Mg Patch.Td24) 21 mg TRANSDERMA DAILY [facility] Last Admin: 05/30/22 08:18 Dose: 21 mg Pt Own (Methenamine (1 Gm Tablet)) 1 gm PO BID [facility] Last Admin: 05/30/22 08:17 Dose: 1 gm Polyethylene Glycol (Polyethylene Glycol 3350 17 Gm Powd.Pack) 17 gm PO DAILY PRN PRN Reason: constipation Risperidone (Risperidone 1 Mg Tablet) 1 mg PO DAILY [facility] Last Admin: 05/30/22 08:18 Dose: 1 mg Tamsulosin HCl (Tamsulosin Hcl 0.4 Mg Capsule) 0.4 mg PO BEDTIME [facility] Last Admin: 05/29/22 19:28 Dose: 0.4 mg Thiamine HCl (Thiamine Hcl 100 Mg Tablet) 100 mg PO DAILY [facility] Last Admin: 05/30/22 08:18 Dose: 100 mg Tiotropium [place] (Tiotropium [place] 18 Mcg Cap.W.Dev) 1 puff INHALE RDAILY [facility] Last Admin: 05/30/22 08:17 Dose: 1 puff Triamcinolone Acetonide (Triamcinolone Acet 0.1 % Cream 15 Gm Tube) 1 appl TOPICAL BID [facility] Last Admin: 05/30/22 08:17 Dose: 1 appl Allergies Allergies Allergy/AdvReac Type Severity Reaction Status Date / Time No Known Allergies Allergy Verified 12/04/21 13:48 Assessment & Plan Assessment & Plan (1) MDD (major depressive disorder), recurrent severe, without psychosis: Status: Acute Code(s): F33.2 - Major depressive disorder, recurrent severe without psychotic features (2) Alcohol use disorder, severe, dependence: Status: Acute Code(s): F10.20 - Alcohol dependence, uncomplicated Plan Aris is a 67 y.o. male who carries a dx of MDD with psychotic features. He [facility]22 due to SI with plan to OD on his medication. Precipitating factors include that pt has been non-adherent with meds, chronic alcoholic, feels lonely. He consumes 6-10 shots alcohol daily and has not had alcohol in 6 days, presumably has already gone through withdrawal. Hx of multiple psych admissions for SI and hx of SA by overdose, jumping out of window. Plan: Re-start home medications, lexapro 10 mg daily, risperdal 1 mg for psychotic depression 05/26: does not want changes to his med regimen, will re-start naltrexone scheduled at 50 mg daily 05/27: No med changes, continue to utilize PRN vistaril 05/28: No med changes, progressing to baseline Q15 min safety checks, CV Monitor response to medications. Monitor for safety in the milieu. Discharge on stabilization. Patient seen. Chart reviewed. Discussed with team. Obtain collateral contact info?as needed 05/29: Continue current plan. 05/30/2022: Continue treatment plan. I spent minutes with the patient and/or on the patient floor today, greater than?50% of which was spent counseling/coordinating care. Reason for contiued inpatient stay Substantial Risk for: harm to self
[2022-05-30 15:58] VITALS: BP 128/82; PULSE 72; TEMP 36.7; O2SAT 99
[2022-05-30] MEDS: Tamsulosin HCL 0.4 MG CAPSULE PO (21:00)
[2022-05-30] MEDS: Naltrexone HCl 50 MG TABLET PO (21:00)
[2022-05-31] MEDS: Acetaminophen 325 MG TABLET 650 MG PO (03:42)
[2022-05-31] MEDS: diphenhydrAMINE HCL 25 MG TABLET PO ×2 (03:43→20:45)
[2022-05-31] MEDS: hydrOXYzine HCL 25 MG TABLET PO ×2 (03:43→20:45)
[2022-05-31 06:00] VITALS: BP 136/84; PULSE 67; RESP 18; TEMP 36.6; O2SAT 98
[2022-05-31] MEDS: Atorvastatin Calcium 10 MG TABLET PO (08:13)
[2022-05-31] MEDS: Gabapentin 100 MG CAPSULE 200 MG PO ×3 (08:13→20:37)
[2022-05-31] MEDS: Finasteride 5 MG TABLET PO (08:13)
[2022-05-31] MEDS: Nicotine 21 MG PATCH.TD24 TRANSDERMA (08:13)
[2022-05-31] MEDS: Thiamine HCL 100 MG TABLET PO (08:13)
[2022-05-31] MEDS: Folic Acid 1 MG TABLET PO (08:14)
[2022-05-31] MEDS: Fluticasone/Vilanterol 200/25 BLST.W.DEV 1 PUFF INHALE (08:14)
[2022-05-31] MEDS: Escitalopram Oxalate 10 MG TABLET PO (08:14)
[2022-05-31] MEDS: Ascorbic Acid 500 MG TABLET PO ×2 (08:14→20:38)
[2022-05-31] MEDS: risperiDONE 1 MG TABLET PO (08:14)
[2022-05-31] MEDS: Triamcinolone Acet 0.1 % Cream 15 GM TUBE 1 APPL TOPICAL (08:14)
[2022-05-31 16:10] VITALS: BP 124/77; PULSE 77
--- NOTE | 2022-05-31 17:01 | P.PNPSI_ITS ---
Subjective Subjective Date of Service: 05/31/22 Reason For Visit: Bipolar I d/O Current or Most Recent Episode Dep Interim History: Column Precaster covering for primary provider today; case discussed with team who is planning on discharge tomorrow feeling patient is ready and appropriate to continue care in the community. Column Precaster met with patient who reports that he is in a good mood and that depression has resolved; no SI at. Sleeping better and eating well. Patient is future oriented, feels that medications have helped wants to continue with them. Patient is optimistic about pursuing sobriety and will work with ACCS Team to this end. Mental Status Exam Mental Status Exam Narrative: A&O. normal body habitus. Good eye contact, attentive. No Tics or Tremors. No abnormal involuntary movements. Calm, cooperative, engaged. Non-pressured speech, spontaneous with regular rate and rhythm, normal volume and prosody. Mood is ?good,? affect is appropriate, congruent. Denies SI/HI; no delusional thought content expressed. Thought process is goal oriented, linear, organized. No known cognitive or memory impairment. Insight/ Judgment fair and adequate. Diagnostics Vital Signs (24Hr): Vital Signs - 24 hr 05/31/22 06:00 05/31/22 16:10 Temperature 97.9 F Pulse Rate 67 77 Respiratory Rate 18 Blood Pressure 136/84 124/77 Pulse Oximetry 98 BMI result Body Mass Index 19.5 Medications Medications Current Medications Acetaminophen (Acetaminophen 325 Mg Tablet) 650 mg PO Q6H PRN PRN Reason: Headache/Pain Mild Scale (1-3) Last Admin: 05/31/22 03:42 Dose: 650 mg Al Hydroxide/Mg Hydroxide (Magnesium Hydrox/Alum Hydrox 30 Ml Oral.Susp) 30 ml PO Q6H PRN PRN Reason: Heartburn/Nausea Albuterol Sulfate (Albuterol Sulfate 90 Mcg 8 Gm Inhaler) 2 puff INHALE RQ4H PRN PRN Reason: Wheezing Last Admin: 05/25/22 09:29 Dose: 2 puff Ascorbic Acid (Ascorbic Acid 500 Mg Tablet) 500 mg PO BID [facility] Last Admin: 05/31/22 08:14 Dose: 500 mg Atorvastatin Calcium (Atorvastatin Calcium 10 Mg Tablet) 10 mg PO DAILY [facility] Last Admin: 05/31/22 08:13 Dose: 10 mg Diphenhydramine HCl (Diphenhydramine Hcl 25 Mg Tablet) 25 mg PO BEDTIME PRN PRN Reason: Insomnia Last Admin: 05/31/22 03:43 Dose: 25 mg Escitalopram Oxalate (Escitalopram Oxalate 10 Mg Tablet) 10 mg PO DAILY [facility] Last Admin: 05/31/22 08:14 Dose: 10 mg Finasteride (Finasteride 5 Mg Tablet) 5 mg PO DAILY [facility] Last Admin: 05/31/22 08:13 Dose: 5 mg Fluticasone/Vilanterol (Fluticasone/Vilanterol 200/25 Blst.W.Dev) 1 puff INHALE RDAILY [facility] Last Admin: 05/31/22 08:14 Dose: 1 puff Folic Acid (Folic Acid 1 Mg Tablet) 1 mg PO DAILY [facility] Last Admin: 05/31/22 08:14 Dose: 1 mg Gabapentin (Gabapentin 100 Mg Capsule) 200 mg PO TID [facility] Last Admin: 05/31/22 14:40 Dose: 200 mg Hydroxyzine HCl (Hydroxyzine Hcl 25 Mg Tablet) 25 mg PO Q6H PRN PRN Reason: Anxiety Last Admin: 05/31/22 03:43 Dose: 25 mg Magnesium Hydroxide (Milk Of Magnesia 30 Ml Oral.Susp) 30 ml PO DAILY PRN PRN Reason: Constipation Naltrexone HCl (Naltrexone Hcl 50 Mg Tablet) 50 mg PO BEDTIME [facility] Last Admin: 05/30/22 21:00 Dose: 50 mg Nicotine (Nicotine 21 Mg Patch.Td24) 21 mg TRANSDERMA DAILY [facility] Last Admin: 05/31/22 08:13 Dose: 21 mg Pt Own (Methenamine (1 Gm Tablet)) 1 gm PO BID [facility] Last Admin: 05/31/22 08:13 Dose: 1 gm Polyethylene Glycol (Polyethylene Glycol 3350 17 Gm Powd.Pack) 17 gm PO DAILY PRN PRN Reason: constipation Risperidone (Risperidone 1 Mg Tablet) 1 mg PO DAILY [facility] Last Admin: 05/31/22 08:14 Dose: 1 mg Tamsulosin HCl (Tamsulosin Hcl 0.4 Mg Capsule) 0.4 mg PO BEDTIME [facility] Last Admin: 05/30/22 21:00 Dose: 0.4 mg Thiamine HCl (Thiamine Hcl 100 Mg Tablet) 100 mg PO DAILY [facility] Last Admin: 05/31/22 08:13 Dose: 100 mg Tiotropium [place] (Tiotropium [place] 18 Mcg Cap.W.Dev) 1 puff INHALE RDAILY [facility] Last Admin: 05/31/22 08:18 Dose: Not Given Triamcinolone Acetonide (Triamcinolone Acet 0.1 % Cream 15 Gm Tube) 1 appl TOPICAL BID [facility] Last Admin: 05/31/22 08:14 Dose: 1 appl Allergies Allergies Allergy/AdvReac Type Severity Reaction Status Date / Time No Known Allergies Allergy Verified 12/04/21 13:48 Assessment & Plan Assessment & Plan (1) MDD (major depressive disorder), recurrent severe, without psychosis: Status: Acute Code(s): F33.2 - Major depressive disorder, recurrent severe without psychotic features (2) Alcohol use disorder, severe, dependence: Status: Acute Code(s): F10.20 - Alcohol dependence, uncomplicated Plan Aris is a 67 y.o. male who carries a dx of MDD with psychotic features. [facility]22 due to SI with plan to OD on his medication. Precipitating factors include that pt has been non-adherent with meds, chronic alcoholic, feels lonely. He consumes 6-10 shots alcohol daily and has not had alcohol in 6 days, presumably has already gone through withdrawal. Hx of mu ltiple psych admissions for SI and hx of SA by overdose, jumping out of window. Plan: Re-start home medications, lexapro 10 mg daily, risperdal 1 mg for psychotic depression 05/26: does not want changes to his med regimen, will re-start naltrexone scheduled at 50 mg daily 05/27: No med changes, continue to utilize PRN vistaril 05/28: No med changes, progressing to baseline 05/29: Continue current plan. 05/30/2022: Continue treatment plan. 05/31 Patient a good mood, depression resolved, no SI and feels ready for discharge tomorrow. Planned to stay sober which is working with his ACCS team; Feels medications were helpful and wants to continue. Patient is not in imminent risk of harm to self or others and his request for discharge honored. Plan: Q15 min safety checks, CV Monitor response to medications. Monitor for safety in the milieu. Discharge on stabilization. Patient seen. Chart reviewed. Discussed with team. Obtain collateral contact info?as needed I spent minutes with the patient and/or on the patient floor today, greater than?50% of which was spent counseling/coordinating care. Patient educated on: diagnosis and medication risk/benefits Informed Consent: understands Reason for contiued inpatient stay Substantial Risk for: stable for discharge
[2022-05-31] MEDS: Tamsulosin HCL 0.4 MG CAPSULE PO (20:38)
[2022-05-31] MEDS: Naltrexone HCl 50 MG TABLET PO (20:38)
[2022-06-01] MEDS: hydrOXYzine HCL 25 MG TABLET PO (03:52)
[2022-06-01] MEDS: Fluticasone/Vilanterol 200/25 BLST.W.DEV 1 PUFF INHALE (08:14)
[2022-06-01] MEDS: Ascorbic Acid 500 MG TABLET PO (08:15)
[2022-06-01] MEDS: Gabapentin 100 MG CAPSULE 200 MG PO (08:15)
[2022-06-01] MEDS: risperiDONE 1 MG TABLET PO (08:15)
[2022-06-01] MEDS: Folic Acid 1 MG TABLET PO (08:15)
[2022-06-01] MEDS: Escitalopram Oxalate 10 MG TABLET PO (08:15)
[2022-06-01] MEDS: Thiamine HCL 100 MG TABLET PO (08:15)
[2022-06-01] MEDS: Atorvastatin Calcium 10 MG TABLET PO (08:15)
[2022-06-01] MEDS: Finasteride 5 MG TABLET PO (08:15)
[2022-06-01] MEDS: Nicotine 21 MG PATCH.TD24 TRANSDERMA (08:17)
[2022-06-01] MEDS: Triamcinolone Acet 0.1 % Cream 15 GM TUBE 1 APPL TOPICAL (08:19)
[2022-06-01 10:40] LABS: Alanine Aminotransferase 39 U/L (0-40); Albumin Level 4.2 g/dL (3.5-5.0); Alkaline Phosphatase 55 U/L (39-117); Aspartate Amino Transferase 29 U/L (5-37); Bilirubin Direct < 0.2 mg/dL (0.0-0.5); Bilirubin Total 0.3 mg/dL (0.0-1.0); Total Protein 7.4 g/dL (6.5-8.0)
--- NOTE | 2022-06-01 11:38 | P.DS_ITS ---
DS: Providers Provider Date of Service: 06/01/22 Date of admission: 05/25/22 01:55 Date of discharge: 06/01/22 Primary care physician: Unknown Physician Consults: 05/25/22 02:21 Consult to Hospitalist Routine Consulting Provider: Hospitalist Reason For Exam: new admit from [facility] DS: Diagnosis Discharge Diagnosis (1) MDD (major depressive disorder), recurrent severe, without psychosis: Status: Resolved (2) Alcohol use disorder, severe, dependence: Status: Resolved DS: Medications Discharge Medications Home Medications: Previous Rx's Medication Instructions Recorded naltrexone microspheres 380 mg 380 mg IM Q4W #1 ea 12/02/21 intramuscular suspension,extended release (Vivitrol) acamprosate 333 mg tablet,delayed 666 mg PO TID 30 days #180 tabs 12/04/21 release albuterol sulfate 90 mcg/actuation 1 puff inhalation Q6H PRN sob #0 12/04/21 aerosol inhaler (Ventolin HFA) grams atorvastatin 10 mg tablet 10 mg PO BEDTIME #0 tabs 12/04/21 cholecalciferol (vitamin D3) 10 10 mcg PO DAILY #0 tabs 12/04/21 mcg (400 unit) tablet (Vitamin D3) finasteride 5 mg tablet (Proscar) 5 mg PO DAILY #0 tabs 12/04/21 gabapentin 100 mg capsule 100 mg PO TID #0 caps 12/04/21 hydrocortisone 1 % topical cream 1 appl topical BID #0 grams 12/04/21 lidocaine 4 % topical patch 1 patch transdermal BEDTIME #0 ea 12/04/21 (Lidocaine Pain Relief) mirtazapine 15 mg tablet 15 mg PO BEDTIME #30 tabs 12/04/21 naltrexone 50 mg tablet 50 mg PO DAILY #30 tabs 12/04/21 naltrexone 50 mg tablet 50 mg PO DAILY 30 days #30 tabs 12/04/21 nicotine 21 mg/24 hr daily 21 mg transdermal DAILY #0 ea 12/04/21 transdermal patch tiotropium bromide 18 mcg capsule 18 mcg inhalation RDAILY ##0 12/04/21 with inhalation device (Spiriva with HandiHaler) trazodone 50 mg tablet 50 mg PO BEDTIME PRN Insomnia #30 12/04/21 tabs venlafaxine 75 mg capsule,extended 75 mg PO DAILY #30 caps 12/04/21 release 24 hr methenamine hippurate 1 gram 1 g PO BID #60 tabs 05/27/22 tablet (Hiprex) albuterol sulfate 90 mcg/actuation 2 puff inhalation RQ4H PRN 06/01/22 aerosol inhaler (Ventolin HFA) Wheezing 30 days #6.7 grams atorvastatin 10 mg tablet 10 mg PO DAILY 30 days #30 tabs 06/01/22 diphenhydramine HCl 25 mg tablet 25 mg PO BEDTIME PRN Insomnia 30 06/01/22 (Allergy Relief (diphenhydramine)) days #30 tabs escitalopram oxalate 10 mg tablet 10 mg PO DAILY 30 days #30 tabs 06/01/22 finasteride 5 mg tablet (Proscar) 5 mg PO DAILY 30 days #30 tabs 06/01/22 gabapentin 100 mg capsule 200 mg PO TID 15 days #90 caps 06/01/22 hydroxyzine HCl 25 mg tablet 25 mg PO TID PRN Anxiety 30 days 06/01/22 #90 tabs naltrexone 50 mg tablet 50 mg PO BEDTIME 30 days #30 tabs 06/01/22 nicotine 21 mg/24 hr daily 21 mg transdermal DAILY 28 days 06/01/22 transdermal patch #28 ea risperidone 1 mg tablet 1 mg PO DAILY 30 days #30 tabs 06/01/22 tamsulosin 0.4 mg capsule 0.4 mg PO BEDTIME 30 days #30 caps 06/01/22 tiotropium bromide 18 mcg capsule 18 mcg inhalation RDAILY 30 days 06/01/22 with inhalation device (Spiriva #30 inhalations with HandiHaler) Mental Status Exam Mental Status Exam Narrative: A&O. Unkempt appearance, normal body habitus, appears older than stated age. Good eye contact, attentive. No Tics or Tremors. No abnormal involuntary movements. Calm, cooperative, engaged. Non-pressured speech, spontaneous with regular rate and rhythm, normal volume and prosody. No prolonged speech latency or dysarthria. Mood is ?better,? affect is appropriate. Denies SI. Denies SIB/HI upon inquiry. Denies AH. Denies VH or delusional thought content. Thoughts are coherent, organized. No known cognitive or memory impairment. Insight/ Judgment fair and adequate. Data Data Completed and Pending Completed studies during hospitalization [Text1]: 09/14/22 09/14/22 09/14/22 08:00 08:00 08:00 Estimat Average Glucose 100 Hemoglobin A1c % 5.1 Magnesium 2.0 Total Bilirubin Direct Bilirubin AST ALT Alkaline Phosphatase Total Protein Albumin Triglycerides 109 Cholesterol 170 LDL Cholesterol, Calc 85 HDL Cholesterol 64 D Vitamin B12 246 Folate 13.1 TSH 2.10 Free T4 0.82 06/01/22 09:42 Estimat Average Glucose Hemoglobin A1c % Magnesium Total Bilirubin 0.3 Direct Bilirubin < 0.2 AST 29 ALT 39 Alkaline Phosphatase 55 Total Protein 7.4 Albumin 4.2 Triglycerides Cholesterol LDL Cholesterol, Calc HDL Cholesterol Vitamin B12 Folate TSH Free T4 DS: Summary Hospital Course Hospital Course: Aris is a 67 y.o. male who carries a dx of MDD with psychotic features. He [facility]22 due to SI with plan to OD on his medication. Precipitating factors include that pt has been non-adherent with meds, chronic alcoholic, feels lonely. He consumes 6-10 shots alcohol daily and has not had alcohol in 6 days, presumably has already gone through withdrawal. Hx of multiple psych admissions for SI and hx of SA by overdose, jumping out of window. Plan: Re-start home medications, lexapro 10 mg daily, risperdal 1 mg for psychotic depression 05/26: does not want changes to his med regimen, will re-start naltrexone scheduled at 50 mg daily 05/27: No med changes, continue to utilize PRN vistaril 05/28: No med changes, progressing to baseline 05/29: Continue current plan.? 05/30: Continue treatment plan. 05/31: Patient a good mood, depression resolved, no SI and feels ready for discharge tomorrow.? Planned to stay sober which is working with his ACCS team; Feels medications were helpful and wants to continue.? Patient is not in imminent risk of harm to self or others and his request for discharge honored. 06/01: stable for discharge Time spent discussing smoking cessation with patient: 3 to 10 minutes Status at Discharge Functional status at discharge: independent ambulation Overall status at discharge: patient is back to baseline Time Spent with Patient Time attestation: Total time spent providing and/or coordinating discharge services: Time spent: Less than 30 minutes Discharge Plan Discharge Patient Disposition: Home, Self-Care Discharge Diagnosis: MDD, recurrent, severe w/psychotic features Referrals: [facility] Outreach Team [Other] - 1 Week (Please contact the above number to reach your [facility] team. If you are unable to reach staff, please also try the staff cell phone number: . An ice cream vault worker will reach out to you on Friday 06/01 or Saturday 06/02 to schedule a [id number] interaction following your hospital discharge) [facility] [employer]: Bradley Basilio [Other] - 1 Week (Please contact Bradley Basilio, Outreach Fuel Tank Sealer And Tester, if you are unable to reach anyone at the outreach office) Therapy and Psychiatry: [facility] [Other] - 1 Week (You have been referred for outpatient therapy and psychiatry at [facility]. Your ACCS Team will be contacted to schedule your follow-up appointments.) Norma Daigle NP [Nurse Practitioner] - 06/08/22 10:15 am (in office) Discharge Medications: New methenamine hippurate [Hiprex] 1 gram tablet 1 g PO BID Qty: 60 0RF diphenhydramine HCl [Allergy Relief(diphenhydramin)] 25 mg Tablet 25 mg PO BEDTIME PRN (Reason: Insomnia) 30 Days Qty: 30 0RF albuterol sulfate [Ventolin HFA] 90 mcg/actuation Hfa Aerosol Inhaler 2 puff inhalation RQ4H PRN (Reason: Wheezing) 30 Days Qty: 6.7 0RF nicotine 21 mg/24 hr Patch 24 Hour 21 mg transdermal DAILY 28 Days Qty: 28 0RF tamsulosin 0.4 mg Capsule 0.4 mg PO BEDTIME 30 Days Qty: 30 0RF Spiriva with HandiHaler 18 mcg Capsule, W/Inhalation Device 18 mcg inhalation RDAILY 30 Days Qty: 30 0RF atorvastatin 10 mg Tablet 10 mg PO DAILY 30 Days Qty: 30 0RF escitalopram oxalate 10 mg Tablet 10 mg PO DAILY 30 Days Qty: 30 0RF gabapentin 100 mg Capsule 200 mg PO TID 15 Days Qty: 90 1RF hydroxyzine HCl 25 mg Tablet 25 mg PO TID PRN (Reason: Anxiety) 30 Days Qty: 90 0RF naltrexone 50 mg Tablet 50 mg PO BEDTIME 30 Days Qty: 30 0RF risperidone 1 mg Tablet 1 mg PO DAILY 30 Days Qty: 30 0RF polyethylene glycol 3350 17 gram Powder In Packet 17 g PO DAILY PRN (Reason: constipation) Qty: 0 0RF finasteride [Proscar] 5 mg Tablet 5 mg PO DAILY 30 Days Qty: 30 0RF ascorbic acid (vitamin C) [Vitamin C] 500 mg Tablet 500 mg PO BID 30 Days Qty: 60 0RF folic acid 1 mg Tablet 1 mg PO DAILY 30 Days Qty: 30 0RF thiamine mononitrate (vit B1) 100 mg Tablet 100 mg PO DAILY 30 Days Qty: 30 0RF B12 Active 1,000 mcg tablet,chewable 1,000 mcg PO DAILY 30 Days Qty: 30 0RF Continued Trelegy Ellipta 200-62.5-25 mcg blister with device 1 puff inhalation DAILY lidocaine [Lidocaine Pain Relief] 4 % Adhesive Patch,Medicated 1 patch transdermal BEDTIME Qty: 0 0RF Protocol: Apply to: Apply to: back hydrocortisone 1 % Cream 1 appl topical BID Qty: 0 0RF Protocol: Apply to: Apply to: affected areas on face and neck cholecalciferol (vitamin D3) [Vitamin D3] 10 mcg (400 unit) Tablet 10 mcg PO DAILY Qty: 0 0RF No Action Vivitrol 380 mg suspension,extended rel recon 380 mg IM Q4W Qty: 1 0RF albuterol sulfate [Ventolin HFA] 90 mcg/actuation Hfa Aerosol Inhaler 1 puff inhalation Q6H PRN (Reason: sob) Qty: 0 0RF Spiriva with HandiHaler 18 mcg Capsule, W/Inhalation Device 18 mcg inhalation RDAILY Qty: 0 0RF atorvastatin 10 mg Tablet 10 mg PO BEDTIME Qty: 0 0RF nicotine 21 mg/24 hr Patch 24 Hour 21 mg transdermal DAILY Qty: 0 0RF gabapentin 100 mg Capsule 100 mg PO TID Qty: 0 0RF venlafaxine 75 mg Capsule,Extended Release 24hr 75 mg PO DAILY Qty: 30 0RF trazodone 50 mg Tablet 50 mg PO BEDTIME PRN (Reason: Insomnia) Qty: 30 0RF naltrexone 50 mg Tablet 50 mg PO DAILY Qty: 30 0RF mirtazapine 15 mg Tablet 15 mg PO BEDTIME Qty: 30 0RF finasteride [Proscar] 5 mg Tablet 5 mg PO DAILY Qty: 0 0RF naltrexone 50 mg tablet 50 mg PO DAILY 30 Days Qty: 30 5RF acamprosate 333 mg tablet,delayed release (DR/EC) 666 mg PO TID 30 Days Qty: 180 5RF Discharge Orders: Discharge Order (Routine); Ordered 06/01/22 Ordered By: Rogers Berger Diet: Regular diet Activity on Discharge: As tolerated Stand Alone Forms: Patient Portal Discharge page, Community Support Care Plan Goals: Maintain mood and safe behaviors Take medications as prescribed Continue to pursue sobriety Practice coping skills Continue with outpatient providers and reach out to them as needed Health Concerns: Mood stability and behaviors Sobriety COPD, spinal fusion x 2019, hx of basal cell carcinoma partial lung resection Plan of Treatment: Follow up with your PCP, psychiatric provider and other outpatient providers regarding above concerns Take medications as prescribed Assessment: Risk assessment at time of discharge:? Patient was interviewed prior to melani [facility] and found to be fully oriented and without any SI or HI. Patient has insight and demonstrates good judgment in terms of wanting to pursue treatment. Patient is not in imminent risk of harm to self or others and has a safety plan that includes presenting to the closest ER or calling 911 if feeling unsafe.? Patient has been observed closely by nursing and unit staff throughout admission; patient has not engaged in any behaviors that suggest dangerousness to self or others and has demonstrated appropriate behaviors and impulse control Discharge Date/Time: 06/01/22 14:04
== END 2022-06-01 14:04 | disposition home or self-care (01) | DRG 751 ==
PROVIDERS: Registered Nurse; Admitting Provider Psychiatry & Neurology Psychiatry; Visit Provider Psychiatry & Neurology Psychiatry
DX: F33.2 Major depressive disorder, recurrent severe without psychotic features (principal); R45.851 Suicidal ideations; F10.20 Alcohol dependence, uncomplicated; F17.210 Nicotine dependence, cigarettes, uncomplicated; J43.9 Emphysema, unspecified; I10 Essential (primary) hypertension; E78.5 Hyperlipidemia, unspecified; N40.0 Benign prostatic hyperplasia without lower urinary tract symptoms; M51.36 Other intervertebral disc degeneration, lumbar region; Z71.6 Tobacco abuse counseling; M81.0 Age-related osteoporosis without current pathological fracture; Z91.14 Patient's other noncompliance with medication regimen; Z98.1 Arthrodesis status; Z87.440 Personal history of urinary (tract) infections; Z85.828 Personal history of other malignant neoplasm of skin; Z79.2 Long term (current) use of antibiotics; Z79.899 Other long term (current) drug therapy
CPT/HCPCS: 36415; 80061; 80076; 82607; 82746; 83036; 83735; 84439; 84443; Q0163